=== PATIENT | male | born 1950 | race African-American/Black ===

== ENCOUNTER 2021-12-04 11:48 | Outpatient (REF) | payer MEDICARE, OTHER, SELFPAY ==
--- NOTE | ~2021-12-04 | XR_ITS ---
EXAMINATION: XR HIP, LEFT CLINICAL INFORMATION: Pain. Fall. COMPARISON: None TECHNIQUE: Two views of the left hip. FINDINGS: Bone alignment is normal. No fracture or dislocation is seen. There is mild arthritis of the left hip joint with joint space narrowing and osteophyte formation. Soft tissues are unremarkable. XR/XR hip LT min 2V IMPRESSION: No fracture or dislocation. Mild left hip arthritis.
== END 2021-12-04 11:49 | disposition home or self-care (01) ==
LOC: HO.LAB 11:48
PROVIDERS: PCP Internal Medicine; Visit Provider Family Medicine
DX: M25.552 Pain in left hip (principal)
CPT/HCPCS: 73502

== ENCOUNTER → 2022-01-17 12:38 | Outpatient (BNVA) | payer OTHER, SELFPAY | PROVIDERS: PCP Internal Medicine; Visit Provider Physician Assistant | DX: S70.02XA Contusion of left hip, initial encounter (principal) | CPT/HCPCS: 99202 ==

== ENCOUNTER 2022-07-11 12:00 | Outpatient (RCR) | payer OTHER, SELFPAY ==
--- NOTE | 2022-05-15 16:13 | MHC.PT.EP ---
[facility] [place] [facility] [place] [facility] [place] [facility] [address] Sylvie Eli [address] [phone] F: [phone] F: [phone] F: [phone] F: [phone] Physical Therapy Plan of Care Date of Evaluation: Date of Surgery: N/A Diagnosis: Contusion of left hip Assessment: Pt is a pleasant and motivated 71yo M who presents to PT with L hip pain. Pt reports onset of pain ~3-4 months ago s/p fall up the stairs, xrays negative for fracture. He presents to PT with current impairments in pain, decreased hip/glute strength, decreased quad strength, decreased balance/proprioception, and impaired gait. He is TTP throughout L greater trochanter region. He is limited functionally by prolonged standing, walking, and stair navigation. He is a good candidate for skilled PT in order to address current impairments to facilitate return to PLOF. He is recommended to be seen 2x/week for 4 weeks and will be reassessed at that time. Frequency and Duration: The patient will be seen 2x/week for 4 weeks Short Term Goals: Pt will be I with HEP to promote self management of symptoms Pt will improve L glute med strength by 1/2 grade Senior Living Goals: Pt will improve L glute med strength to at least 4+/5 to assist with standing and walking Pt will tolerate standing and walking > 30 min with pain < 4/10 Pt will demonstrate improvements in function as evidenced by statistically significant improvement in LEFI outcome measure Treatment Plan: Modalities to reduce pain, spasms and effusion. Manual therapy to restore motion and function. Therapeutic exercise to improve strength and flexibility. Neuromuscular re-education for posture and balance. Therapeutic activities to return to functional activities of daily living. Electronically signed by: Carlene Cooper, PT, DPT Please sign and return to therapist. Thank you for your referral.
--- NOTE | 2022-07-11 14:42 | MHC.PT.DC ---
[facility] [place] [facility] [place] [facility] [place] [facility] [address] Sylvie Eli [address] [phone] F: [phone] F: [phone] F: [phone] F: [phone] Physical Therapy Discharge Report Diagnosis: Contusion of left hip Date of Surgery: N/A Date of Evaluation: 05/15/22 Date of Discharge: 07/11/22 Treatments to Date: 8 Cancellations to Date: 6 No Shows to Date: Discharge Status: Achieved Goals Improved Function Independent with HEP Discharge Summary: Pt was seen for PT from 05/15/22-07/11/22. He has made excellent progress since SOC. He has consistently had minimal to no pain. He improved his score on LEFI outcome measure from 12/80 on initial PT evaluation to 54/80. He is able to ambulate extended distances without AD and ride his bike without pain. He has met his STGs and LTGs. He is I with HEP. He is being D/C from skilled PT at this time. He reports no questions or concerns at time of D/C. Electronically signed by: Carlene Cooper, PT, DPT Please sign and return to therapist. Thank you for your referral.
== END 2022-07-11 14:41 | disposition home or self-care (01) ==
LOC: HO.PT 12:00
PROVIDERS: PCP Internal Medicine; Visit Provider Physician Assistant
DX: S70.02XD Contusion of left hip, subsequent encounter (principal)
CPT/HCPCS: 97110; 97140; 97161; 97530

== ENCOUNTER 2023-05-13 14:05 | Outpatient (REF) | payer MEDICARE, SELFPAY ==
[2023-05-13 16:23] LABS: MANUAL DIFF FLAG NO
[2023-05-13 16:31] LABS: Basophils Absolute Auto 0.1 X10*3/uL (0.0-0.2); Basophils Percent Auto 1.9 % (0-2); Eosinophils Percent Auto 0.6 % (0-4); Hemoglobin 15.3 g/dl (14.0-18.0); Imm Gran Abs Auto 0.01 X10*3/uL (0.00-0.03); Imm Gran Pct Auto 0.2 % (0.0-0.4); Lymphocytes Percent Auto 41.4 % (20-40); Mean Corpuscular HGB Conc 33.3 g/dl (31.0-36.0); Mean Corpuscular Hemoglobin 29.8 pg (27.0-33.0); Mean Corpuscular Volume 89.7 fL (80.0-98.0); Mean Platelet Volume 10.1 fL (9.4-12.4); Monocytes Absolute Auto 0.5 X10*3/uL (0.1-1.2); Monocytes Percent Auto 10.7 % (2-11); Neutrophils Absolute Auto 2.2 x10*3/uL (2.0-8.3); Neutrophils Percent Auto 45.2 % (45-73); Platelet Count 217 X10*3/uL (160-400); Red Blood Count 5.13 X10*6/uL (4.60-5.80); Red Cell Distribution Width 14.8 % (11.0-16.0); White Blood Count 4.9 X10*3/uL (4.8-10.8)
[2023-05-13 16:56] LABS: Alanine Aminotransferase 13 U/L (0-40); Albumin Level 4.2 g/dL (3.5-5.0); Alkaline Phosphatase 91 U/L (39-117); Anion Gap 16 (12-20); Aspartate Amino Transferase 24 U/L (5-37); Bilirubin Direct 0.2 mg/dL (0.0-0.5); Bilirubin Total 0.5 mg/dL (0.0-1.0); Blood Urea Nitrogen 7 mg/dL (9-16); Calcium 9.4 mg/dL (8.4-10.2); Carbon Dioxide 28 mmol/L (22-29); Chloride 101 mmol/L (96-108); Cholesterol 200 mg/dL (<200); Estimated Glomerular Filt Rate > 60; Glucose Random 93 mg/dL (60-115); HDL Cholesterol 58 mg/dL (>40); LDL Cholesterol Calculated 129 mg/dL (<100); Potassium 4.2 mmol/L (3.3-5.1); Sodium 141 mmol/L (135-145); Total Protein 8.3 g/dL (6.5-8.0); Triglycerides 66 mg/dL (<150)
[2023-05-13 16:57] LABS: Estimated Average Glucose 111 mg/dL; Hemoglobin A1c % 5.5 % (<6.0)
[2023-05-14 07:50] LABS: HIV AB/AG Nonreactive (Nonreactive); HIV Num 1 0.06 S/CO (0.00-0.99); ~HepC Num1 12.54 S/CO (0.00-0.79); ~Hepatitis C Antibody Reactive (Nonreactive)
[2023-05-16 10:59] LABS: HCV Log PCR <1.18 NOT DETECTED Log IU/mL (NOT DETECTED); HepC Viral Load <15 NOT DETECTED IU/mL (NOT DETECTED)
== END 2023-05-13 14:06 | disposition home or self-care (01) ==
LOC: HO.HHCL 14:05
PROVIDERS: Visit Provider Internal Medicine
DX: Z11.4 Encounter for screening for human immunodeficiency virus [HIV] (principal); I10 Essential (primary) hypertension
CPT/HCPCS: 36415; 80048; 80061; 80076; 83036; 85025; 86803; 87389; 87522

== ENCOUNTER 2024-05-06 11:30 | Outpatient (REF) | payer MEDICARE, SELFPAY ==
--- NOTE | ~2024-05-06 | XR_ITS ---
EXAMINATION: XR HIP 2 OR MORE VIEWS LEFT HISTORY: Chronic left-sided hip pain. History of hip OA. COMPARISON: Comparison is made with the prior examination dated 12/04/2021. FINDINGS: Three views of the left hip are submitted. Osseous mineralization is normal. There is no fracture or dislocation. There is mild joint space narrowing. The soft tissues are unremarkable. XR/XR hip LT min 2V IMPRESSION: Mild joint space narrowing. Electronically signed by: Glenn Euceda MD 05/06/2024 12:29 PM JERMAINE GUZMAN
--- OUTSIDE RECORDS SUMMARY | 2024-05-06 15:32 | XMS_ITS | Data Portability ---
Author Organization [place] - [facility], Allergy Address [address] [address] Care Team Providers Care Marketing Assistant Retail Division Name Role Phone ELISA LU Primary Care Provider [phone] Assessment No assessment recorded. Plan of Treatment Reminders Order Date Submit Date Provider Last Modified By Organization Details Last Modified Time Details Appointments None recorded. Lab None recorded. Referral None recorded. Procedures None recorded. Surgeries None recorded. Imaging MRI, brain + internal auditory canal, w/wo contrast - MRI, BRAIN + INTERNAL AUDITORY CANAL, W/WO CONTRAST [facility] [address] [place], [address], 16:35:27 Medication Orders None recorded. Patient TargetsNo targets recorded. Patient InstructionsNo instructions recorded. Reason for Referral None Reported. Results Created Date Observation Date Name Description Value Unit Range Abnormal Flag Note LastModifiedBy Organization Detail LastModifiedTime 10/30/19 24 audio gram No observ ation record ed. BARCODE Not Available 2023 14:16:12 11/20/19 24 11/20/2023 MRI, brain + brain stem, w/wo contr ast [facility] Access ion Number : [id number] Charley payne Name: Jeyson Jaya l Record Number : [id number] Date of : 1950 Date of Exam: 2023 Referr ravi Physic maribell: Aparna Rogers [facility] [place] [address] [facility] [address] [place] [address] Exam: MR Brain (C-/C+ ) CPT 86173 Room Descri ption: [place] Siem Espr 1.5 MR Brain (C-/C+ ) CPT 63983 INDICA TION / CLINIC AL QUESTI ON: H90.5 - Unspec ified sensor ineura l hearin g loss, , MRI, BRAIN + SENIOR IT PROJECT MANAGER AL AUDITO RY CANAL, W/WO CONTRA ST\E E\[facility] (MRI, BRAIN + SENIOR IT PROJECT MANAGER AL AUDITO RY CANAL, W/WO CONTRA ST)Cli nical Indica tion: Asymme tric sensor ineura l hearin g loss H90.5 - Unspec ified sensor ineura l hearin g loss, , MRI, BRAIN + SENIOR IT PROJECT MANAGER AL AUDITO RY CANAL, W/WO CONTRA ST\E E\[facility] (MRI, BRAIN + SENIOR IT PROJECT MANAGER AL AUDITO RY CANAL, W/WO CONTRA ST)Cli nical Indica tion: Asymme tric sensor ineura l hearin g loss TECHNI QUE: MRI of the brain with attent ion to the employee communications intern al audito ry canals was perfor med with and withou t contra st utiliz ing sagitt al T1, axial T2, axial CISS, axial and william l T1, and post-c ontras t axial and william l T1-isaiah ghted sequen rhoda. 15 mL Dotare m intrav enous contra st was admini stered . COMPAR VANITA: None. FINDIN GS: IAC: There is no mass or abnorm al enhanc ement in the employee communications intern al audito ry canals or cerebe llopon oscar angles . Course and calibe r of the 7th and 8th crania l nerves is normal bilate rally. Fluid signal is preser giulia in the inner ear struct ures bilate rally. Brains tem demons trates normal signal . BRAIN and EXTRA- AXIAL SPACES : The ventri cles and sulci are promin ent reflec ting volume loss. There is a promin ent periva scular space versus chroni c lacuna r infarc t in the left thalam us. EXTRAC RANIAL SOFT TISSUE S: Visual ized portio ns of the extrac ranial soft tissue s are unrema rkable . Mild scatte red parana wally sinus mucosa l thicke tip and trace nonspe cific patchy fluid signal in the bilate ral mastoi d air cells. BONES: Visual ized marrow signal is preser giulia. IMPRES LISA: No retroc ochlea r abnorm ality to explai n the patien t?s sympto ms. Electr onical ly Signed By: Yamileth siegel MD [facility] ([facility]) [address], [place], [address], 11/21/2023 12:27:09 Result Notes None recorded. Problems Name Problem SNOMED Code Status Onset Date Resolution Date Notes Provider Name and Address Organization Details Recorded Time Sensorineural hearing loss of bilateral ears 864404663 Active 2023 EDMUND PADILLA, [place] [address], [place], [phone], [facility] 4 09:40:16 Asymmetrical sensorineural hearing loss 827045717 Active 2023 APARNA Grijalva MD [address] [place] [address], [place], [phone], [facility] 4 10:42:49 Problem Notes None recorded. Procedures Surgical History Date Name Laterality Status Provider Name and Address Organization Details Recorded Time 10/30/2023 Comp Audio with Tymps (12200 & 70145) completed EDMUND PADILLA [address], [address], [facility] 10/30/2023 09:40:00 Imaging Results Imaging Date Name Status LastModified by Organiz ation Details LastModified Time 10/30/2023 audiogram completed BARCODE Information no t available 10/30/2023 14:16:12 11/20/2023 MRI, brain + brain stem, w/wo contrast completed [facility] ([facility]) [address], [place], [address], 11/21/2023 12:27:09 Procedure Notes None recorded. Medical Equipment None Reported. Medications Name Sig Start Date Stop Date Status Note LastModified by Organization Details LastModified Time nicotine (polacrilex) 4 mg gum CHEW 1 PIECE IN MOUTH EVERY 2 HOURS NEEDED FOR SMOKING CESSATION active Not Available Not Available No t Available amlodipine 10 mg tablet TAKE 1 TABLET BY MOUTH EVERY MORNING active Not Available Not Available No t Available lisinopril 10 mg tablet TAKE 1 TABLET BY MOUTH EVERY MORNING active Not Available Not Available No t Available lisinopril 30 mg tablet TAKE 1 TABLET BY MOUTH EVERY DAY IN THE MORNING active Not Available Not Available No t Available Vitals Date Recorded Body height Body mass index (BMI) Body weight Provider Name and Address Organization Details Last Updated DateTime 10/30/2023 177.8 cm 23 kg/m2 86980.78 g Meenakshi Neely [place] - [facility] 10/30/2023 10:31:12 Social History None recorded. Functional Status None recorded. Mental Status None recorded. Family History Nothing Reported. Medical History No medical history recorded. Past Encounters Encounter ID Performer Location Encounter Start Date Encounter Closed Date Diagnosis/Indication Diagnosis SNOMED-CT Code Diagnosis ICD10 Code Diagnosis Note [id number] APARNA ROBISON MD [facility] [address] [address] 10/30/2023 09:08:48 10/30/2023 10:51:41 Sensorineural hearing loss of bilateral ears 249036455 H90.3 Right Ear:Normal hearing through 500 Hz sloping to a profound SNHL with excellent speech discrimina tion.Type A tympanogra m.Left Ear:Normal hearing through 1K Hz sloping to a severe SNHL with excellent speech discrimina tion.Type A tympanogra m. Asymmetric al sensorineural hearing loss 985923629 H90.5 Given the asymmetric hearing loss I recommend an MRI IAC with contrast to evaluate for retrocochl ear pathology. We will review results when complete. I gave medical clearance for hearing aids. Health Concerns Section Related Observation LastModified by Organization Detai ls LastModified Time None Recorded Concern Status LastModified by Organization Details LastModified Time None Recorded Advance Directives Directive None Recorded Payers Encounter Date Sequence Insurance Name Policy Number Policy Altamirano Covered Member ID Altamirano Member ID Guarantor Name 10/30/2023 1 [employer] (MEDICARE REPLACEMENT PPO) [id number] Jeyson Jay [id number] Jeyson Jay Notes Date Note Type Note Provider Name and Address Organization Details Recorded Time 10/30/2023 text/html In March or April he noted decreased hearing AD. Denies tinnitus. he did not see a doctor when he noted the hearing change. Audio today shows normal sloping to profound SNHL AD and normal sloping to severe . APARNA ROBISON MD [address] [place] [address], [phone], [facility] - [facility] 10/30/2023 10:48:14
== END 2024-05-06 11:31 | disposition home or self-care (01) ==
LOC: HO.HHCX 11:30
PROVIDERS: Visit Provider Family Medicine
DX: M25.552 Pain in left hip (principal)
CPT/HCPCS: 73502

== ENCOUNTER → 2024-05-06 11:31 | Outpatient (BNV) | payer MEDICARE, SELFPAY | PROVIDERS: Visit Provider Radiology Diagnostic Radiology | DX: M25.552 Pain in left hip (principal) | CPT/HCPCS: 73502 ==

== ENCOUNTER 2024-06-18 11:38 | Outpatient (REF) | payer MEDICARE, SELFPAY ==
--- NOTE | ~2024-06-18 | XR_ITS ---
EXAMINATION: XR KNEE 4 OR MORE VIEWS LEFT HISTORY: pain COMPARISON: There are no prior studies available for comparison. FINDINGS: Four views of the left knee are submitted. Osseous mineralization is normal. There is no fracture or dislocation. The joint spaces are preserved. There are vascular calcifications. XR/XR knee LT 4V IMPRESSION: Unremarkable examination of the left knee. Electronically signed by: Glenn Euceda MD 06/18/2024 12:16 PM EDT
--- OUTSIDE RECORDS SUMMARY | 2024-06-18 13:28 | XMS_ITS | Encounter Summary ---
Author Organization [employer] Address [address] [facility] [address] [place] [address] Care Team Providers Care Immunohematologist Name Role Phone Ashley Medeiros MD Primary Care Provide r Encounter Details Date Type Department Care Team (Latest Contact Info) Description 06/18/2024 Travel Social History Tobacco Use Types Packs/Day Years Used Date Smoking Tobacco: Every Day Cigarettes Passive Smoke Exposure: Current Smokeless Tobacco: Never Alcohol Use Standard Drinks/Week Comments Never 0 (1 standard drink = 0.6 oz pur e alcohol) Depression Answer Date Recorded Patient Health Questionnaire-9 Score 0 06/18/2024 Patient Health Questionnaire-9 Score 0 06/18/2024 Last PHQ-9: Questionnaire Data Not on file 0 06/18/2024 Housing Stability Answer Date Recorded What is your housing situation today? I have alejandrina morse 08/05/[address] you li ve. Do you have problems with any of the following? None of the above 08/05/2023 Food Insecurity Answer Date Recorded Within the past 12 months, y ou worried that your food would run out before you got money to buy more: Never True 08/05/2023 Within the past 12 months,th e food you bought just didn't last and you didn't have enough money to get more: Never True Transportation Answer Date Recorded In the past 12 months, has l ack of transportation kept you from medical appts, meetings, work or from getting things needed for daily living? No 06/18/2024 Utilities Answer Date Recorded In the past 12 months, has t he electric, gas, oil or water company threatened to shut off services in your home? No 08/05/2023 Depression Answer Date Recorded Patient Health Questionnaire-2 Score 0 06/18/2024 Internet Access Answer Date Recorded Internet Access Q1 No 06/18/2024 Internet Access Q2 I do not want or need it 06/05 Sex and Gender Information Value Date Recorded Sex Assigned at Male 02/04/2022 10:31 AM EDT Legal Sex Male 10:31 AM EDT Gender Identity Male 05/21/2024 1:46 PM EST Sexual Orientation Straight 05/21/2024 1: 46 PM EST documented as of this encounter Plan of Treatment Not on file documented as of this encounter Visit Diagnoses Not on filedocumented in this encounter Additional Health Concerns Assessment Noted Time PHQ-9 Depression Total Score: 0 06/19/19 25 9:50 AM EDT documented as of this encounter Care Teams Immunohematologist Relationship Specialty Start Date End Date Ashley Medeiros MD [address] [place] [address] PCP - General Family Medicine 11/02/18 documented as of this encounter
--- OUTSIDE RECORDS SUMMARY | 2024-06-18 13:28 | XMS_ITS | Clinical Summary ---
Author Organization [employer] Address [address] [facility] 7t [place] [address] Care Team Providers Care Product Tester Name Role Phone Ashley Medeiros MD Primary Care Provide r Allergies Active Allergy Reactions Criticality Noted Date Comments Penicillins 10/09/2016 Other reaction(s): Rash Medications nicotine polacrilex (Nicorette) 4 MG gumIndications: Smoker Chew 1 each (4 mg) if needed for smoking cessation. 100 each 05/13/19 24 Active lisinopril 30 MG tabletIndicatio ns:Essential hypertension Take 1 tablet (30 mg) by mouth in the morning. 90 tablet 1 05/21/19 25 Active amLODIPine (Norvasc) 10 MG tabletIndicatio ns:Essential hypertension Take 1 tablet (10 mg) by mouth Once per day. 90 tablet 1 05/21/19 25 026 Active Diclofenac Sodium 1 % gelIndications: Acute pain of left knee Apply as needed up to 2g 4x/d to knee 100 g 1 05/21/19 25 Active atorvastatin (Lipitor) 40 MG tabletIndicatio ns:Essential hypertension Take 1 tablet (40 mg) by mouth Once per day. 90 tablet 1 06/19/19 25 026 Active amLODIPine (Norvasc) 10 MG tabletIndicatio ns:Essential hypertension Take 1 tablet (10 mg) by mouth in the morning. 90 tablet 1 05/13/19 24 025 Discontinued(R eorder (will not trigger notification to Pharmacy)) lisinopril 30 MG tabletIndicatio ns:Essential hypertension TAKE 1 TABLET BY MOUTH EVERY DAY IN THE MORNING 90 tablet 1 11/13/19 24 025 Discontinued(R eorder (will not trigger notification to Pharmacy)) Diclofenac Sodium 1 % gel PLEASE SEE ATTACHED FOR DETAILED DIRECTIONS 025 Discontinued(R eorder (will not trigger notification to Pharmacy)) acetaminophen (Tylenol Extra Strength) 500 MG tabletIndicatio ns:Acute pain of left knee Take 2 tablets (1,000 mg) by mouth every 8 (eight) hours if needed for mild pain or moderate pain for up to 10 days. 60 tablet 05/21/19 25 025 Active Problems Problem Noted Date Diagnosed Date Acute pain of left knee 06/18/2024 Assessment & Plan (06/18/2024 10:55 AM EDT): I will order an x-ray of his knee patient will be contacted with results I will refer patient to orthopedics in light of persistent pain Left hip pain 06/18/2024 Assessment & Plan (06/18/2024 10:55 AM EDT): I will refer patient to orthopedics He will start PT next week Smoker 05/13/2023 Assessment & Plan (06/18/2024 10:55 AM EDT): Extensive counseling about smoking cessation on today Patient reports he has nicotine gum at home and he will try to quit smoking on his own Assessment & Plan (05/13/2023 1:44 PM EST): Smoking cessation counseling Diminished hearing, right 05/13/2023 Assessment & Plan (05/13/2023 1:44 PM EST): ENT referral Impacted cerumen 04/11/2023 04/11/2023 Benign prostatic hyperplasia (BPH) with straining on urination 07/09/2018 04/11/2023 Hyperlipidemia 07/09/2018 04/11/2023 Tubular adenoma of colon 07/09/2018 024 Abdominal aortic ectasia 01/07/2017 024 Common iliac aneurysm 01/07/2017 04/11/2023 Chronic hepatitis C 10/14/2016 04/11/2023 Essential hypertension 10/09/2016 4 Assessment & Plan (06/18/2024 10:54 AM EDT): Today patient forgot to take his medication, blood pressure was borderline high I advised low-sodium diet I advised to take his medications every day without missing any dose I advised to monitor blood pressure at home and report back to me if blood pressure is persistently higher than 140/90 Assessment & Plan (05/13/2023 1:43 PM EST): Maintenance: BMP: ordered today Lipid Panel: ordered today ASCVD Risk: Calculate pending updated labs -Patient is clinically asymptomatic he denies chest pain, SOB, dizziness, palpitations, headache, weakness or numbness -I will start amlodipine 10mg daily + lisinopril 10mg daily RTC 1 week with nurse for BP check if is not at goal plan is increase lisinopril to 30mg It was advise: - Aerobic exercise to reduce BP. Initial goal of 30 min walk 3-5x/week. Increase as tolerated. - low-sodium diet (goal: <2g/day) and heart healthy diet such as DASH to reduce BP and prevent ASCVD. - Home BP monitoring 1-2 x day with goal of <140/90. - Seek immediate medical attention for chest pain, palpitations, SOB, syncope, or sudden changes in mental status. - Do not change or discontinue current prescriptions without first consulting health care provider Encounters Date Type Department Care Team Description 06/18/2024 10:00 AM EDT Office Visit [facility] [address] [place] [phone] Ashley Medeiros MD Essential hypertension (Primary Dx); Acute pain of left knee; Left hip pain; Smoker 06/18/2024 Travel 05/21/2024 1:45 PM EST Office Visit [facility] [address] [place] [address] Madai Raed ANP Acute pain of left knee (Primary Dx); Essential hypertension; Smoker 05/21/2024 Travel 05/20/2024 Telephone [facility] [address] [place] [address] Ashley Medeiros MD Nurse Triage 05/07/2024 Telephone [facility] [address] [place] [phone] Robert Parker MD 05/03/2024 Telephone [facility] [address] [place] [phone] Maine Shipley, RN NTTS 05/01/2024 11:20 AM EST Office Visit [facility] [address] [place] [address] Robert Parker MD Left hip pain (Primary Dx); Essential hypertension 04/30/2024 Telephone [facility] [address] [place] [address] Ashley Medeiros MD Nurse Triage from Last 3 Months Immunizations Name Administration Dates Next Due Hep B, adult 12/19/2017,08/04/2017 Influenza High-dose Quadrivalent Preservative Fr ee 01/04/2022 Influenza Quadrivalent Adjuvanted 01/25/2021 Influenza injectable quadriv alent IIV4 with preservative 02/13/2017 Influenza injectable quadrivalent preservative f ree 05/13/2023 Influenza, High Dose Seasonal, Preservative Free 02/05/2019,12/19/2017 Pneumococcal Conjugate PCV 13 02/13/2017 Pneumococcal Conjugate PCV 20 05/13/2023 Tdap 05/21/2024 Zoster, live 12/10/2017 Social History Tobacco Use Types Packs/Day Years Used Date Smoking Tobacco: Every Day Cigarettes Passive Smoke Exposure: Current Smokeless Tobacco: Never Tobacco Cessation:Ready to Q uit: Not Asked; Counseling Given: Not Answered Alcohol Use Standard Drinks/Week Comments Never 0 [...] Orientation Straight 05/21/2024 1: 46 PM EST Last Filed Vital Signs Vital Sign Reading Time Taken Comments Blood Pressure 140/82 06/18/2024 9:49 AM EDT w out meds Pulse 110 06/18/2024 9:49 AM EDT Temperature 36.3 ??C (97.4 ??F) 06/18/2024 9 :49 AM EDT Respiratory Rate 20 06/18/2024 9:49 AM EDT Oxygen Saturation 97% 05/21/2024 2:0 5 PM EST Inhaled Oxygen Concentration - - Weight 60.7 kg (133 lb 12.8 oz) 025 9:49 AM EDT Height 177.8 cm (5' 10 ) 06/18/2024 9:4 9 AM EDT Body Mass Index 19.2 06/18/2024 9:49 AM EDT Plan of Treatment Health Maintenance Due Date Last Done Comments CT Colonography 1950 FIT DNA/Cologuard 1950 FIT 1950 FOBT 1950 Sigmoidoscopy 1950 Hepatitis A Vaccines (1 of 2 - Risk 2-dose series) 08/10/1970 RSV Patients and Patients Aged 60 years or older (1 - Risk 60-74 years 1-dose series) 2011 Zoster Vaccines (2 of 3) 02/04/2018 12/10/2017 Hepatitis B Vaccines (3 of 3 - Risk 3-dose series) 02/13/2018 12/19/2017, 08/04/2017 Colonoscopy 12/09/2021 12/09/2016 Colorectal Cancer Screening 12/09/2021 COVID-19 Vaccine (3 - season) 2023 07/29/2020, 07/01/2020 Influenza Vaccine (#1) 2023 , 01/04/2022, 01/25/2021, Additional history exists Alcohol/Substance Use Screening 05/21/2025 05/21/2024 Depression Screening 06/18/2025 06/18/2024, 06/19/19 SDOH Screening 06/18/2025 06/18/2024 Tobacco Screening 06/18/2025 06/18/2024 Lipid Panel 05/13/2028 05/13/2023, 01/04/2022 DTaP/Tdap/Td Vaccines (2 - Td or Tdap) 05/21/2034 05/21/2024 Pneumococcal Vaccine: 50+ Years Completed 05/13/2023, 02/13/2017 HIB Vaccines Aged Out No longer eligi ble based on patient's age to complete this topic HPV Vaccines Aged Out No longer eligi ble based on patient's age to complete this topic IPV Vaccines Aged Out No longer eligi ble based on patient's age to complete this topic Meningococcal Vaccine Aged Out No miguel a allyssa eligible based on patient's age to complete this topic RSV under 20 months Aged Out No longe r eligible based on patient's age to complete this topic Rotavirus Vaccines Aged Out No longer eligible based on patient's age to complete this topic Procedures Procedure Name Priority Date/Time Associated Diagnosis Comments XR KNEE 4+ VIEWS LEFT Routine 06/18/2024 11:38 AM EDT Acute pain of left knee XR HIP 2 OR 3 VIEWS LEFT Routine 05/06/2024 11:31 AM EST Left hip pain LIPID PANEL, STANDARD Routine 05/13/2023 2:09 PM EST Essential hypertension HM COLONOSCOPY Routine 12/09/2016 from Last 3 Months or Most Recently Relevant to Health Maintenance Results * XR Knee 4+ Views Left (06/18/2024 11:38 AM EDT) Anatomical Region Laterality Modality Lower Extremities, Knee Left Radiogra phic Imaging 06/18/2024 11:3 8 AM EDT Narrative 06/18/2024 12:19 PM EDT ?[facility] ?[address] ?[place] [address] ?XRay Report ? Signed ? Patient: Jeyson Jay ?MR#: [id number] ? : 1950 ?Acct:[id number] ? Age/Sex: 73 / M ?ADM Date: 06/18/24 ? Loc: HO.HHCX ? Attending Dr: Ashley Mejias MD ? Ordering Physician: Ashley Medeiros MD ?? Date of Service: 06/18/24 ?? Procedure(s): XR knee LT 4V ?? Accession Number(s): [id number] ? cc: Ashley Medeiros MD ? EXAMINATION: ??XR KNEE 4 OR MORE VIEWS LEFT ? HISTORY: pain ? COMPARISON: There are no prior studies available for comparison. ? FINDINGS: ? Four views of the left knee are submitted. ??Osseous mineralization is ?? normal. ??There is no fracture or dislocation. ??The joint spaces are ?? preserved. ??There are vascular calcifications. ? XR/XR knee LT 4V ?? IMPRESSION: ? Unremarkable examination of the left knee. ? Electronically signed by: ??Glenn Euceda MD ??06/18/2024 12:16 PM EDT ?? RP ? Dictated By: ?Glenn Euceda MD ? Signed By: ?<Electronically signed by Glenn Euceda MD in OV> ?06/18/24 1216 ? DD/ 1138 ? TD/TT: 06/18/24 1200 ? Arc Trimmer: ? Procedure Note Nic, Image - 06/18/[address] [address] XRay Report Signed Patient: Marlene Jay#: [id number] : 2Acct:[id number] Age/Sex: 73 / MADM Date: 06/18/24 Loc: HO.HHCX Attending Dr: Ashley Mejias MD Ordering Physician: Ashley Medeiros MD Date of Service: 06/18/24 Procedure(s): XR knee LT 4V Accession Number(s): [id number] cc: Ashley Medeiros MD EXAMINATION: XR KNEE 4 OR MORE VIEWS LEFT HISTORY: pain COMPARISON: There are no prior studies available for comparison. FINDINGS: Four views of the left knee are submitted. Osseous mineralization is normal. There is no fracture or dislocation. The joint spaces are preserved. There are vascular calcifications. XR/XR knee LT 4V IMPRESSION: Unremarkable examination of the left knee. Electronically signed by: Glenn Euceda MD 06/18/2024 12:16 PM EDT Dictated By: Glenn Euceda MD Signed By: <Electronically signed by Glenn Euceda MD in OV> 06/18/24 1216 DD/ 1138 TD/TT: 06/18/24 1200 Arc Trimmer: us Ashley Mejias MD IMG XR PROCEDURES Fin al Result * XR Hip 2 or 3 Views Left (05/06/2024 11:31 AM EST) Anatomical Region Laterality Modality Lower Extremities, Hip Left Radiograp hic Imaging 05/06/2024 11:3 1 AM EST Narrative 05/06/2024 12:32 PM EST ?[facility] ?[address] ?[place] [address] ?XRay Report ? Signed ? Patient: Pierre,Jeyson ?MR#: [id number] ? : 1950 ?Acct:[id number] ? Age/Sex: 73 / M ?ADM Date: 01/30/25 ? Loc: HO.HHCX ? Attending Dr: Robert Parker MD ? Ordering Physician: Robert Parker MD ?? Date of Service: 05/06/24 ?? Procedure(s): XR hip LT min 2V ?? Accession Number(s): [id number] ? cc: Robert Parker MD ? EXAMINATION: ??XR HIP 2 OR MORE VIEWS LEFT ? HISTORY: Chronic left-sided hip pain. History of hip OA. ? COMPARISON: Comparison is made with the prior examination dated ?? 12/04/2021. ? FINDINGS: ?? Three views of the left hip are submitted. ??Osseous ?? mineralization is normal. ??There is no fracture or dislocation. ??There ?? is mild joint space narrowing. ??The soft tissues are unremarkable. ? XR/XR hip LT min 2V ?? IMPRESSION: ?? Mild joint space narrowing. ? Electronically signed by: ??Glenn Euceda MD ??05/06/2024 12:29 PM EST ?? RP ? Dictated By: ?Glenn Euceda MD ? Signed By: ?<Electronically signed by Glenn Euceda MD in OV> ?05/06/24 1229 ? DD/ 1131 ? TD/TT: 05/06/24 1156 ? Arc Trimmer: ? Procedure Note Nic, Image - 05/06/[address] [address] XRay Report Signed Patient: Marlene Jay#: [id number] : 2Acct:[id number] Age/Sex: 73 / MADM Date: 05/06/24 Loc: HO.HHCX Attending Dr: Robert Parker MD Ordering Physician: Robert Parker MD Date of Service: 05/06/24 Procedure(s): XR hip LT min 2V Accession Number(s): [id number] cc: Robert Parker MD EXAMINATION: XR HIP 2 OR MORE VIEWS LEFT HISTORY: Chronic left-sided hip pain. History of hip OA. COMPARISON: Comparison is made with the prior examination dated 12/04/2021. FINDINGS: Three views of the left hip are submitted. Osseous mineralization is normal. There is no fracture or dislocation. There is mild joint space narrowing. The soft tissues are unremarkable. XR/XR hip LT min 2V IMPRESSION: Mild joint space narrowing. Electronically signed by: Glenn Euceda MD 05/06/2024 12:29 PM EST RP Dictated By: Glenn Euceda MD Signed By: <Electronically signed by Glenn Euceda MD in OV> 05/06/24 1229 DD/ 1131 TD/TT: 05/06/24 1156 Arc Trimmer: us Robert Parker MD IMG XR PROCEDURES Final Result * (ABNORMAL) Lipid Panel, Standard (05/13/2023 2:09 PM EST) Triglycerides 66 <150 mg/dL [facility] Comment:Desirable Triglyceri de: less than 150 mg/dLBorderline High Triglyceride 150-199 mg/dLHigh Triglyceride: 200-499 mg/dLVery High Triglyceride: greater than or equal to 5OO mg/dL Cholesterol 200(H) <200 mg/dL [facility] Comment:Desirable Cholestero l: less than 200 mg/dLBorderline High Cholesterol: 200-239 mg/dLHigh Cholesterol: greater than 239 mg/dL LDL Cholesterol Calculated 129(H) <100 mg/dL [facility] Comment:Desirable LDL: less than 100 mg/dLNear Optimal/Above Optimal LDL: 110- 129 mg/dLBorderline High LDL: 130-159 mg/dLHigh LDL: 160-189 mg/dLVery High LDL: greater than or equal to 190 mg/dL HDL Cholesterol 58 >40 mg/dL [facility] Comment:Desirable HDL: great er than 40 mg/dL Note: This HDL assay may give artificially low results in patients with liver disease. Blood Venous blood specimen / Unknown 05/13/2023 2:09 PM EST 05/13/2023 4:09 PM EST us Ashley Mejias MD LAB BLOOD ORDERABLES Final Result [facility] [address] [place] [phone] * Hm Colonoscopy (12/09/2016) us Historical Provider HEALTH MAINTENANCE Final Result from Last 3 Months or Most Recently Relevant to Health Maintenance Insurance MEDICARE ADVANTAGE HMO Care Teams Product Tester Relationship Specialty Start Date End Date Ashley Medeiros MD [address] [place] [phone] PCP - General Family Medicine 11/02/18
--- OUTSIDE RECORDS SUMMARY | 2024-06-18 13:28 | XMS_ITS | Encounter Summary ---
Author Organization [employer] Address [address] [facility] 7t [place] [address] Care Team Providers Care Control Clerk Head Name Role Phone Ashley Medeiros MD Primary Care Provide r Reason for Referral * Consultation (Routine) - Pending Review Specialty Diagnoses / Procedures Referred By Bruce payne Referred To Contact Orthopaedic Surgery Diagnoses Acute pain of left knee Left hip pain Ashley Medeiros MD [address] [place] [phone] Phone: tel: fax: Referral ID Status Reason Start Date Expiration Date Visits Requested Visits Authorized [id number] Pending Review Specialty Services Required 06/18/2024 06/18/2025 1 1 Encounter Details Date Type Department Care Team (Late st Contact Info) Description 06/18/2024 10:00 AM EDT Office Visit [facility] [address] [place] [address] [phone] Ashley Medeiros MD [address] [place], [place] [phone] Essential hypertension (Primary Dx); Acute pain of left knee; Left hip pain; Smoker Social History Tobacco Use Types Packs/Day Years [...] PM EST documented as of this encounter Last Filed Vital Signs Vital Sign Reading Time Taken Comments Blood Pressure 140/82 06/18/2024 9:49 AM EDT w out meds Pulse 110 06/18/2024 9:49 AM EDT Temperature 36.3 ??C (97.4 ??F) 06/18/2024 9 :49 AM EDT Respiratory Rate 20 06/18/2024 9:49 AM EDT Oxygen Saturation - - Inhaled Oxygen Concentration - - Weight 60.7 kg (133 lb 12.8 oz) 025 9:49 AM EDT Height 177.8 cm (5' 10 ) 06/18/2024 9:4 9 AM EDT Body Mass Index 19.2 06/18/2024 9:49 AM EDT documented in this encounter Progress Notes * Ashley Mejias MD - 06/18/2024 10:00 AM EDT SUBJECTIVE: Jeyson Jay is a 73 y.o. year old male who presents for Follow up . Acute Concerns: Patient reports this last couple of months he has being having extreme pain it started on his left hip and the pain radiated to his left knee, reports tissue was very tender to touch and he could notsleep due to pain, today patient still reports some pain on his knee Social History Social History Narrative Not on file Patient Active Problem List Diagnosis Abdominal aortic ectasia (CMS/HCC) Benign prostatic hyperplasia (BPH) with straining on urination Chronic hepatitis C (CMS/HCC) Common iliac aneurysm (CMS/HCC) Essential hypertension Hyperlipidemia Impacted cerumen Tubular adenoma of colon Smoker Diminished hearing, right Acute pain of left knee Left hip pain No family history on file. Review of Systems Constitutional: Negative. HENT: Negative. Respiratory: Negative. Cardiovascular: Negative. Musculoskeletal: Positive for arthralgias and myalgias. OBJECTIVE: Vitals: 06/18/24 0949 BP: (!) 140/82 BP Location: Left arm Patient Position: Sitting BP Cuff Size: Adult Pulse: 110 Resp: 20 Temp: 97.4 ??F (36.3 ??C) TempSrc: Oral Weight: 133 lb 12.8 oz (60.7 kg) Height: 5' 10 (1.778 m) Physical Exam Constitutional: Appearance: Normal appearance. Pulmonary: Effort: Pulmonary effort is normal. Breath sounds: Wheezing and rhonchi present. Musculoskeletal: Right hip: Normal. Left hip: Normal. Left knee: Tenderness present. Right lower leg: No edema. Left lower leg: No edema. Neurological: Mental Status: He is alert. Follow Up: No follow-ups on file. Current Outpatient Medications on File Prior to Visit Medication Sig Dispense Refill amLODIPine (Norvasc) 10 MG tablet Take 1 tablet (10 mg) by mouth Once per day. 90 tablet 1 Diclofenac Sodium 1 % gel Apply as needed up to 2g 4x/d to knee 100 g 1 lisinopril 30 MG tablet Take 1 tablet (30 mg) by mouth in the morning. 90 tablet 1 nicotine polacrilex (Nicorette) 4 MG gum Chew 1 each (4 mg) if needed for smoking cessation. 100 each 0 No current facility-administered medications on file prior to visit. Problem List Items Addressed This Visit Essential hypertension - Primary Today patient forgot to take his medication, blood pressure was borderline high I advised low-sodium diet I advised to take his medications every day without missing any dose I advised to monitor blood pressure at home and report back to me if blood pressure is persistentlyhigher than 140/90 Relevant Medications atorvastatin (Lipitor) 40 MG tablet Acute pain of left knee I will order an x-ray of his knee patient will be contacted with results I will refer patient to orthopedics in light of persistent pain Relevant Orders Referral to Orthopaedic Surgery XR Knee 4+ Views Left Left hip pain I will refer patient to orthopedics He will start PT next week Relevant Orders Referral to Orthopaedic Surgery Smoker Extensive counseling about smoking cessation on today Patient reports he has nicotine gum at home and he will try to quit smoking on his own documented in this encounter Miscellaneous Notes * Assessment & Plan Note - Ashley Mejias MD - 06/18/2024 10:55 AM EDT Associated Problem(s): Smoker Extensive counseling about smoking cessation on today Patient reports he has nicotine gum at home and he will try to quit smoking on his own * Assessment & Plan Note - Ashley Mejias MD - 06/18/2024 10:55 AM EDT Associated Problem(s): Left hip pain I will refer patient to orthopedics He will start PT next week * Assessment & Plan Note - Ashley Mejias MD - 06/18/2024 10:55 AM EDT Associated Problem(s): Acute pain of left knee I will order an x-ray of his knee patient will be contacted with results I will refer patient to orthopedics in light of persistent pain * Assessment & Plan Note - Ashley Mejias MD - 06/18/2024 10:54 AM EDT Associated Problem(s): Essential hypertension Today patient forgot to take his medication, blood pressure was borderline high I advised low-sodium diet I advised to take his medications every day without missing any dose I advised to monitor blood pressure at home and report back to me if blood pressure is persistentlyhigher than 140/90 documented in this encounter Plan of Treatment Scheduled Referrals Name Type Priority Associated Diagnoses Order Schedule Referral to Orthopaedic Surgery Outpatient Referral Routine Acute pain of left knee Left hip pain Expected: 06/18/2024 (Approximate), Expires: 06/18/2025 documented as of this encounter Procedures Procedure Name Priority Date/Time Associated Diagnosis Comments XR KNEE 4+ VIEWS LEFT Routine 06/18/2024 11:38 AM EDT Acute pain of left knee documented in this encounter Results * XR Knee 4+ Views Left (06/18/2024 11:38 AM EDT) Anatomical Region Laterality Modality Lower Extremities, Knee Left Radiogra phic Imaging 06/18/2024 11:3 8 AM EDT Narrative 06/18/2024 12:19 PM EDT ?[facility] ?[address] ?[place] [address] ?XRay Report ? Signed ? Patient: Pierre,Jeyson ?MR#: [id number] ? : 1950 ?Acct:[id number] ? Age/Sex: 73 / M ?ADM Date: 03/14/25 ? Loc: HO.HHCX ? Attending Dr: Ashley Mejias MD ? Ordering Physician: Ashley Medeiros MD ?? Date of Service: 06/18/24 ?? Procedure(s): XR knee LT 4V ?? Accession Number(s): [id number] ? cc: Ashley Medeiros MD ? EXAMINATION: [...] DD/ 1138 ? TD/TT: 06/18/24 1200 ? Body Shop Supervisor: ? Procedure Note Tonejerald, Image - 06/18/[address] [address] XRay Report Signed Patient: Marlene Jay#: [id number] : 2Acct:[id number] Age/Sex: 73 / MADM Date: 06/18/24 Loc: HO.HHCX Attending Dr: Ashley Mejias MD Ordering Physician: Ashley Medeiros MD Date of Service: 06/18/24 Procedure(s): XR knee LT 4V Accession Number(s): [id number] cc: Ashley Medeiros MD EXAMINATION: XR KNEE [...] 06/18/24 1216 DD/ 1138 TD/TT: 06/18/24 1200 Body Shop Supervisor: Ashley Mejias MD IMG XR PROCEDURES Fin al Result documented in this encounter Visit Diagnoses Diagnosis Essential hypertension- Primary Unspecified essential hypertension Acute pain of left knee Left hip pain Pain in joint, pelvic region and thigh Smoker Tobacco use disorder documented in this encounter Additional Health Concerns Assessment Noted Time PHQ-9 Depression Total Score: 0 06/19/19 25 9:50 AM EDT documented as of this encounter Care Teams Control Clerk Head Relationship Specialty Start Date End Date Ashley Medeiros MD [address] [place] [phone] PCP - General Family Medicine 11/02/18 documented as of this encounter
--- OUTSIDE RECORDS SUMMARY | 2024-06-18 13:28 | XMS_ITS | Continuity of Care Document ---
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 generic okay PRED FORTE 1% SUSP INSTILL 1 DROP IN EACH EYE EVERY MORNING NEEDED - Active fluorometholone 0.1 % eye drops,suspension INSTILL 1 DROP IN RIGHT EYE EVERY NIGHT AT BEDTIME - Active *fill Generic* FML Forte 0.25 % eye drops,suspension instill 1 drop by ophthalmic route [facility] OD - Active metformin 850 mg tablet take 1 tablet by oral route 2 times every day with morning and evening meals 850 MG - Active omeprazole 20 mg capsule,delayed release take 1 capsule by oral route every day 30 minutes to 1 hour before a meal 20 MG - Active glipizide ER 5 mg tablet, extended release 24 hr take 1 tablet by oral route every day with breakfast 5 MG - Active fenofibrate 160 mg tablet take 1 tablet by oral route every day 160 MG - Active aspirin 325 mg tablet take 1 tablet by oral route every day 325 MG - Active losartan 50 mg tablet take 1 tablet by oral route every day 50 MG - Active guaifenesin 400 mg tablet take 1 tablet by oral route daily prn - Active Benadryl 25 mg capsule take 1 capsule by oral route bid - Active melatonin 5 mg capsule - Active Lipofen 50 mg capsule - Active metoprolol tartrate 25 mg tablet take 1 tablet by oral route every day 25 MG - Active MAGNESIUM (unknown strength) Not Available - Active prednisolone acetate 1 % eye drops,suspension 1 gtts TID OD - Active ALLOPURINOL (unknown strength) Not Available - Active GLIPIZIDE (unknown strength) Not Available - Active LOSARTAN POTASSIUM (unknown strength) Not Available - Active POTASSIUM (unknown strength) Not Available - Active METOPROLOL TARTRATE (unknown strength) Not Available - Active OMEPRAZOLE (unknown strength) Not Available - Active DIFLUCAN (unknown strength) Not Available - Active ARTIFICIAL TEARS (unknown strength) PRN, OU Not Available - Active latanoprost 0.005 % eye drops instill 1 drop by ophthalmic route QHS OD - No Longer Active 90 day supply. generic okay Procedures Procedure Date Est Pt Complete Visual Mcmillan, Extended Pachymetry No Charge Retinal OCT Scan Computerized; Optic Nerve 22 Est Patient E/M Moderate MDM Visual Mcmillan, Extended Scan Computerized; Optic Nerve No Charge Retinal OCT Est Pt Complete Visual Mcmillan, Extended No Charge Retinal OCT Scan Computerized; Optic Nerve 21 Est Patient E/M Moderate MDM Ophth Serv: Med Exam; Interm E 20 Optos Fundus Photography Est Pt Complete Est Pt Complete No Charge Retinal OCT Est Pt Complete No Charge Retinal OCT Fundus Photography Est Pt Complete Ophth Serv: Med Exam; Interm E 17 Postop F/u Visit Incld Global 6 Postop F/u Visit Inc[facility] Global 6 Postop F/u Visit Inc[facility] Global 6 Postop F/u Visit Inc[facility] Global 6 Postop F/u Visit Inc[facility] Global 6 Keratoplasty (Corneal Transplant) Endoth elial Oct Iridotomy (dec Pro); Ex Transf Oct 16 Remov Corneal Epithel; W/wo Ch Oct 16 Anes- Eye; Corneal Transpl Oct Facility Fee Keratoplasty (Corneal Trans plant) End Fac Fee Iridotomy By Stab Incision Oct Facility Fee Remov Corneal Epithel; W/wo Oct Process Preserv Transp Corneal Oct 16 Ophth Serv: Med Exam; Interm E 16 Est Pt Exp Prob Focused Ophth Serv: Med Exam; Interm E 16 Pachymetry No Charge Retinal OCT Corneal Topography Est Pt Complete Fundus Photography New Pt Complete Advance Directives Directive Yes / No Effective Date File Name No Information Encounters Encounter Description Practice Location Reason(s) For Visit Diagnoses Date Provider Providers Copied on Encounter [facility], [address] [place] [address], [id number], tel:[phone] [facility] [place] [id number] No Information 3 Asota Norma. [address], [place], [id number], [place]. tel:[phone] [facility], [address] [place], [place], [id number], [place] tel:[phone] [facility] [place] [id number] Glaucoma, pressure check (chief complaint) Open angle with borderline findings, low risk, right eye Oct-2 2 Ivonne Pereira. [address] [place], [place], [id number], [place]. tel:[phone] Referring Provider: Randall Coronado, [address] [place], [address] . tel:[phone] Est Patient E/M Moderate MDM [facility], [address] [place], [place], [id number], [place] tel:[phone] [facility] [id number] Diabetic eye exam (chief complaint) Glaucoma (chief complaint) DMEK (chief complaint) Corneal transplant statusOpen angle with borderline findings, low risk, right eyePuckering of macula, right eyeDry eye syndrome of bilateral lacrimal glandsType 2 diabetes mellitus without complications alf (current) use of oral antidiabetic drugs 2 Ivonne Pereira. [address] [place], [place], [id number], [place]. tel:[phone] Referring Provider: Randall Coronado, [address] [place], [address] . tel:[phone] [facility], [address] [place], [place], [id number], [place] tel:[phone] [facility] [id number] Glaucoma (chief complaint) Diabetic eye exam (chief complaint) Open angle with borderline findings, low risk, right eyePuckering of macula, right eye 1 Ivonne Pereira. [address] [place], [place], [id number], [place]. tel:[phone] Referring Provider: Randall Coronado, [address] [place], [address] . tel:[phone] [facility], [address] [place], [place], [id number], [place] tel:[phone] [facility] [id number] No Information 1 Ivonne Pereira. [address] [place], [place], [id number], [place]. tel:[phone] Est Patient E/M Moderate MDM [facility], [address] [place], [place], [id number], [place] tel:[phone] [place] [id number] Diabetic eye exam (chief complaint) Glaucoma (chief complaint) Open angle with borderline findings, low risk, right eyePuckering of macula, right eyeType 2 diabetes mellitus without complications alf (current) use of oral antidiabetic drugsCorneal transplant statusDry eye syndrome of bilateral lacrimal glands 1 Ivonne Pereira. [address] [place], [place], [id number], [place]. tel:[phone] Referring Provider: Randall Coronado, [address] [place], [address] . tel:[phone] [facility], [address] [place], [place], [id number], [place] tel:[phone] [place] [phone] Open angle with borderline findings, low risk, right eye Dec- 0- 0 Ivonne Pereira. [address] [place], [place], [id number], [place]. tel:[phone] Referring Provider: Randall Coronado, [address] [place], [address] . tel:[phone] [facility], [address] [place], [place], [id number], [place] tel:[phone] [place] [id number] Type 2 diabetes mellitus without complications alf (current) use of oral hypoglycemic drugsCorneal transplant statusPuckeri ng of macula, right eyeOpen angle with borderline findings, low risk, right eye Nov-0 0 Ivonne Pereira. [address] [place], [place], [id number], [place]. tel:[phone] Referring Provider: Randall Coronado, [address] [place], [address] . tel:[phone] [facility], [address] [place], [place], [id number], [place] tel:[phone] [place] [id number] No Information 0 Ivonne Pereira. [address], [id number], . tel:[phone] [facility], [address] [place], [place], [id number], [place] tel:[phone] [facility] [place] [id number] Type 2 diabetes mellitus without complications alf (current) use of oral hypoglycemic drugsOther vitreous opacities, bilateralCorn eal transplant statusPuckeri ng of macula, right eye [facility]. [address] [place], [place], [id number], [place]. tel:[phone] Referring Provider: Elliot Contreras III, [address], [place], [address]. tel:[phone] [facility], [address] [place], [place], [id number], tel:[phone] [facility] [place] 855 No Information Addy Larkin. [address] [place], [place], [id number], [place]. tel:[phone] [facility], [address], [id number], [place] tel:[phone] [facility] [place] [id number] Type 2 diabetes mellitus without complications alf (current) use of oral hypoglycemic drugsOther secondary cataract, left eyeOther vitreous opacities, bilateralCorn eal transplant status [facility]. [address], [id number], [place]. tel:[phone] Referring Provider: Elliot Contreras III, [address], [place], [address]. tel:[phone] [facility], [address], [id number], [place] tel:[phone] [facility] [place] Type 2 diabetes mellitus without complications tank terminal gauger (current) use of oral antidiabetic drugsCombined forms of age-related cataract, left eyeOther secondary cataract, left eyeCorneal transplant status Ricarda Salvador. [address] [place], [place], [id number], [place]. tel:[phone] Referring Provider: Elliot Contreras III, [address], [place], [address]. tel:[phone] [facility], [address] [place], [place], [id number], [place] tel:[phone] [facility] [place] Corneal transplant status Gregoryzerbethany Salvador. [address] [place], [place], [id number], [place]. tel:[phone] Referring Provider: Madeleine Chowdary, [address] [place], [address] . tel:[phone] [facility], [address] [place], [place], [id number], [place] tel:[phone] [facility] [place] [id number] No Information 6 Maxwell Zeelane. [address] [place], [place], [id number], [place]. tel:[phone] Referring Provider: Crow Maxwell, [address] [place], [address] . tel:[phone] [facility], [address] [place], [place], [id number], [place] tel:[phone] [facility] [place] [id number] Inj conjunctiva and corneal abrasion w/o fb, right eye, init 6 Maxwell Zeelane. [address] [place], [place], [id number], [place]. tel:[phone] [facility], [address] [place], [place], [address], [place] tel:[phone] [facility] [place] Good OD (chief complaint) No Information 6 Gregoryzerbethany Madeleine. [address] [place], [place], [id number], [place]. tel:[phone] [facility], [address] [place], [place], [id number], [place] tel:[phone] [facility] [place] [id number] Corneal transplant status Oct-2 0-201 6 No Information [facility], [address] [place], [id number], [place] tel:[phone] [facility] [place] [id number] blurry vision, slight pain last night, watery eyes OD (chief complaint) No Information Oct-1 2-201 6 Boyd Randall. [address] [place], [place], [id number], [place]. tel:[phone] [facility], [address] [place], [place], [id number], [place] tel:[phone] [facility] No Information Oct-1 1- 6 No Information Referring Provider: Madeleine Chowdary, [address] [place], [address] . tel:[phone] [facility], [address] [place], [place], [id number], [place] tel:[phone] [facility] No Information Oct-1 - 6 Stradling Kieran. [address] [place], [place], [address], [place]. tel:[phone] [facility], [address] [place], [place], [id number], [place] tel:[phone] [facility] No Information Oct-1 - 6 [facility]. [address] [place], [place], [id number], [place]. tel:[phone] [facility], [address] [place], [place], [address], [place] tel:[phone] [facility] [place] [id number] Secondary corneal edema, right eye Oct-0 5-201 6 No Information Est Pt Exp Prob Focused [facility], [address] [place], [place], [id number], [place] tel:[phone] [facility] [place] [id number] Encounter for other preprocedural examination Dec-1 6 Dagoberto Sanches. [address] [place], [place], [id number], [place]. tel:[phone] [facility], [address] [place], [place], [id number], [place] tel:[phone] [facility] [place] [id number] Presence of intraocular lensType 2 diabetes mellitus without complications Secondary corneal edema, right eye Dec-0 6 No Information [facility], [address] [place], [place], [id number], [place] tel:[phone] [facility] [place] [id number] Secondary corneal edema, right eyeType 2 diabetes mellitus without complications Presence of intraocular lens Nov-0 6 No Information Referring Provider: Madeleine Chowdary, [address] [place], [address] . tel:[phone] [facility], [address] [place], [place], [id number], [place] tel:[phone] [facility] [place] Secondary corneal edema of right eyeType 2 diabetes mellitus without complications Oct-2 6 Rciarda Salvador. [address] [place], [place], [id number], [place]. tel:[phone] Referring Provider: Elliot Contreras III, [address], [place], [address]. tel:[phone] [facility], [address] [place] [address], [id number], [place] tel:[phone] [place] Corneal Disorder NosNonexudat Macular DegenChoriore tinal Scar NosDiabetes Mellitus Type 2, Uncomplicated Feb- 4 No Information [facility], [address] [place] [address], [id number], [place] tel:[phone] Conversion Location RCA Diabetes Mellitus Type 2, Uncomplicated Chorioretinal Scar NosNonexudat Macular DegenLens Replacement NecOcular Hypertension Sep-0 4 No Information [facility], [address] [place] [address], [place], [place], [id number], [place] tel:[phone] Conversion Location RCA Diabetes Mellitus Type 2, Uncomplicated Chorioretinal Scar NosNonexudat Macular DegenSenile Nuclear Cataract 4 No Information Family History Family Member Type Diagnosis Age At Onset Problem (finding) Family history of Diabe latrell mellitus Mother Problem (finding) Cancer Siblings Problem (finding) Diabetes mellitus Payers Payer name Insurance type Covered republican ID Authoriza tion(s) Prime Medicare Advantage CI [id number] Social History Type Description Quantity Date Captured Comments Sex Male Smoking Status No Information Chief Complaint And Reason For Visit No Information Reason For Referral Reason For Referral No Information Plan Of Treatment Date Type Action Status Future Order: Radiology Order OC T Retina ([id number]), Ordered on: Ordered Future Order: Radiology Order OC T Optic Nerve (RNFL) ([id number]), Ordered on: Ordered Future Order: Radiology Order OC T Retina ([id number]), Ordered on: Ordered Future Order: Radiology Order OC T Retina ([id number]), Ordered on: Ordered History Of Present Illness Encounter Date Complaint History Of Prese nt Illness Glaucoma, pressure check The 71 year old male presents for evaluation of Glaucoma, pressure check It affects VA not affected. The condition is stable. Pt states VA has been ok just needs reading glasses. Pt using Latanoprost OD QHS and Pred Forte BID AM. Pt is needing refills at this time. DMEK The patient is p resent for evaluation of DMEK. Pt using Pred QD for dmek Diabetic eye exam The 71 year ol d male presents for evaluation of Diabetic eye exam in the right eye and left eye. It affects VA not affected. The condition is stable. A1C: unknown.BG: unknown. Glaucoma The patient is p resent for evaluation of Glaucoma in the right eye and left eye. It affects superiorly. The condition is stable. Pt using Latanoprost OD QHS. Glaucoma The 70 year old male presents for evaluation of Glaucoma in the right eye and left eye. Latanoprost QHS OD Diabetic eye exam BG and A1C unk nown Diabetic eye exam Pt does not ch ja sugar levels regularly and does not know last A1C Glaucoma The patient is p resent for evaluation of Glaucoma in the right eye. Pt using Latnaprost QAM OD and FM QHS OD Denies changes to VA Pt needs refills Pt states he is expe riencing pain above the eye brow, w Pt states he is experiencing pain above the eye brow, watering eyes and nose. Pt has some redness. Pt is currently using Prednisolone 3 times a day and then starting tomorrow is 2 times a day. OD Pt states he is expe riencing pain above the eye brow, w Pt states he is experiencing pain above the eye brow, watering eyes and nose. Pt has some redness. Pt is currently using Prednisolone 3 times a day and then starting tomorrow is 2 times a day. OD Good Good OD blurry vision, sligh t pain last night, watery eyes blurry vision, slight pain last night, watery eyes OD Functional Status Date Functional Assessmen t No Information Instructions Date Instruction Additional Infor divine Impression/Plan - Co ntinue Latanoprost QHS OD only. Avg. Pachs. Steroid responder due to DMEK. Continue pf qam OD.(Dr Haynes ok to d/c pf gtts after 1 yr) Pt prefers to continue gtts. Related to Open angle with borderline findings, low risk, right eye Follow up - Return i n 6 months ce vf rnfl Impression/Plan - As ymptomatic with no distortion. Continue to observe Related to Puckering of macula, right eye Impression/Plan - Co ntinue artificial tears TID or more OU. Related to Dry eye syndrome of bilateral lacrimal glands Impression/Plan - Vi sual Field and OCT RNFL wnl OU, stable. ISlight increase in IOP; Avg Pachs. Continue Latanoprost QHS OD only. Possible low steroid responder. Related to Open angle with borderline findings, low risk, right eye Follow up - RTC 3-4 mo IOP check Impression/Plan - See primary DM plan Related to alf (current) use of oral antidiabetic drugs Impression/Plan - Co ntinue FML QHS OD. Patient atanoprost due to elevated IOP 02/11/2020 Related to Corneal transplant status Impression/Plan - No Non-Proliferative Diabetic Retinopathy, no Diabetic Macular Edema and no Neovascularization of the iris, disc, or elsewhere. Discussed ocular and systemic benefits of blood sugar control. Send notes to PCP. Check annually. Stable Related to Type 2 diabetes mellitus without complications Impression/Plan - Vi sual Field and OCT RNFL wnl OU. IOP stable; Avg Pachs. Possible low steroid responder. Continue Latanoprost QHS OD only. Related to Open angle with borderline findings, low risk, right eye Impression/Plan - OC T mac stable. Monitor Related to Puckering of macula, right eye Impression/Plan - See primary pl an Related to alf (current) use of oral antidiabetic drugs Impression/Plan - OC T MAC stable, continue to monitor. Related to Puckering of macula, right eye Impression/Plan - OC T RNFL and Visual Field wnl OU. IOP stable. possible low steroid responder. Continue Latanoprost QHS OD only. Related to Open angle with borderline findings, low risk, right eye Impression/Plan - In crease artificial tears TID or more OU. Related to Dry eye syndrome of bilateral lacrimal glands Impression/Plan - DM EK OD, Continue FML QHS OD. On latanoprost due to elevated IOP 02/11/2020 Related to Corneal transplant status Impression/Plan - No Background Diabetic Retinopathy, no Diabetic Macular Edema and no Neovascularization of the iris, disc, or elsewhere. Disc. ocular and systemic benefits of blood sugar control. The [place] [employer] recommends target glycohemoglobin at 7.0% or less to minimize incidence of retinopathy as well as other systemic complications of diabetes mellitus. Send notes to PCP. Check annually. Related to Type 2 diabetes mellitus without complications Follow up - Return i n 6 months for Visual Field (24-2), Complete Exam, OCT(RNFL), - Good iop continue latanto qam OD only Related to Open angle with borderline findings, low risk, right eye - IOP elevated OD, s tart latanoprost QHS OD. Continue FML QHS OD. Related to Corneal transplant status - Asymptomatic. Monitor Related to Puckering of macula, right eye - See priamary plan Related to L verna term (current) use of oral hypoglycemic drugs - possible low stero id responder start latanto qhs od Related to Open angle with borderline findings, low risk, right eye - No Non-Proliferati ve Diabetic Retinopathy, no Diabetic Macular Edema and no Neovascularization of the iris, disc, or elsewhere. Discussed ocular and systemic benefits of blood sugar control. Send notes to PCP. Check annually. Related to Type 2 diabetes mellitus without complications - trace not vision related Relat ed to Puckering of macula, right eye - No Background Diab etic Retinopathy, no Diabetic Macular Edema and no Neovascularization of the iris, disc, or elsewhere. Disc. ocular and systemic benefits of blood sugar control. The [place] [employer] recommends target glycohemoglobin at 7.0% or less to minimize incidence of retinopathy as well as other systemic complications of diabetes mellitus. Send notes to PCP. Check annually. stable. Related to Type 2 diabetes mellitus without complications - See priamary plan Related to L verna term (current) use of oral hypoglycemic drugs - FML QHS OD Related to Corne al transplant status - Patient prefers no treatment at this time. Related to Other vitreous opacities, bilateral - No Background Diab etic Retinopathy, no Diabetic Macular Edema and no Neovascularization of the iris, disc, or elsewhere. Disc. ocular and systemic benefits of blood sugar control. The [place] [employer] recommends target glycohemoglobin at 7.0% or less to minimize incidence of retinopathy as well as other systemic complications of diabetes mellitus. Send notes to PCP. Check annually. Related to Type 2 diabetes mellitus without complications - See priamary plan Related to L verna term (current) use of oral hypoglycemic drugs - Patient prefers no treatment at this time. trace Related to Other secondary cataract, left eye - Discussed signs an d symptoms of PVD/floaters. Discussed treatment options with patient. Patient prefers no treatment at this time. Related to Other vitreous opacities, bilateral - FML QHS OD Related to Corne al transplant status - Patient doing well. FML QHS OU . Related to Corneal transplant status - See other Diabetic plan Relate d to alf (current) use of oral antidiabetic drugs - No Non-Proliferati ve Diabetic Retinopathy, no Diabetic Macular Edema and no Neovascularization of the iris, disc, or elsewhere. Discussed ocular and systemic benefits of blood sugar control. Check annually. Related to Type 2 diabetes mellitus without complications - Opacified capsule not affecting vision. No indication for treatment. Return if decreased vision. Related to Other secondary cataract, left eye - Patient doing well . FML QHS OU. RTC as scheduled in October for CEE or sooner if any changes in vision or worsening of symptoms. Related to Corneal transplant status - Patient doing well . Stitch removed today and betadine instilled. Taper drops as instructed on sheet given. Vision much improved today. Explained to patient how to taper drops but that he will be on 1 drop daily for life to reduce risk of rejection. Related to Corneal transplant status - last check prior t o SK at time of DMEK OD w/ 8.5 graft with 9mm strip (9mm marker)cornea looks good today. pt more comfortable with BCL in and we will leave in until sx. Related to Secondary corneal edema, right eye - I would recommend DMEK surgery or replacing endothelial cells with descemet's membrane. The rejection rate with this procedure is 2% versus 20% with previous corneal transplants. The visual recovery is faster but may still take weeks to months. There are restrictions on head positioning in the post op period and no travel at higher altitudes is permitted for one week. There is a chance of needing air placed in the office again for better adherence. Risks of DMEK include bleeding and infection. Risks include rejection, need for additional surgery, need for glasses after, and the risks from the medications used. Steroids should not be stopped without instruction by a doctor. Information packet given. Questions answered. Patient will require a surgical peripheral iridotomy to prevent pupil block glaucoma during surgery. SK at time of DMEK OD Related to Secondary corneal edema, right eye - In good position. CTM. Related to Presence of intraocular lens - No Non-Proliferati ve Diabetic Retinopathy, no Diabetic Macular Edema and no Neovascularization of the iris, disc, or elsewhere. Discussed ocular and systemic benefits of blood sugar control. Check annually. Related to Type 2 diabetes mellitus without complications - Edema, inferior bu llae. Discussed doing DMEK Right eye with PI. Would have patient start [id number] drops and ointment to see if this decreases the edema. F/U with Dr Carver in 1 month. Will get patient on schedule for DMEK since scheduling is so far out. , Pseudophakic OU,Capsule clear. patient reports needing cortex removal s/p sx in 2013 (pt reports unknown complications during cataract surgery) 7mm dilation. Stop Pred and start Beverley 128. Please Schedule patient to be seen in [address] Carver to see if the edema has decreased and schedule DMEK/PI Right eye as schedule allows. Will send drops in as surgery date gets closer. 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 CTM. Related to Presence of intraocular lens - No Non-Proliferati ve Diabetic Retinopathy, no Diabetic Macular Edema and no Neovascularization of the iris, disc, or elsewhere. Discussed ocular and systemic benefits of blood sugar control. Send notes to PCP. Check annually. Related to Type 2 diabetes mellitus without complications - No Non-Proliferati ve Diabetic Retinopathy, no Diabetic Macular Edema and no Neovascularization of the iris, disc, or elsewhere. Discussed ocular and systemic benefits of blood sugar control. Send notes to PCP. Check annually. Related to Type 2 diabetes mellitus without complications - EBMD, Pseudophakic OU, reports needing cortex removal s/p sx in 2013 (pt reports unknown complications during cataract surgery) Also reports dr told him he had a hole and put in a stent Begin Pred QID OD, ATs q1-2h.Will schedule cornea consultation; edu pt to rtc immediately if any changes in vision or worsening of symptoms. 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 IOL looks great. Unexplained edema. Followed by Dr. De Leon. Trace diffuse thickening of retina. Do not recommend treatment of the retina at this time. Vision loss due to corneal edema. Patient on combigan bid and lotemax ointment qdaily. PF bid. consider increasing PF OD. 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 Observe for now. Related to Nonexudative Macular Degeneration Ocular Hypertension OD - Presscribed combigan bid OD. Instructed to follow-up in 1-[address] De Leon for further management. 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 Possibly old CNV. Now Dry. 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 The patient understands that controlling BS and BP is the best way to stabilize vision at this time. 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 Possibly old CNV. Now Dry. 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 Cleared from a retinal standpoint. Discussed small possibility that the CNV may become re-actfivated after surgery but that currently, it is not active. Related to Senile Nuclear Cataract Diabetes Mellitus Ty pe 2, Uncomplicated OU - I emphasized the importance of blood sugar and blood pressure control. The patient understands that controlling BS and BP is the best way to stabilize vision at this time. We also discussed the importance of routine dilated eye exams. Related to Diabetes Mellitus Type 2, Uncomplicated Nonexudative Macular Degeneration OS - No IRF/SRF. Observe for now. Related to Nonexudative Macular Degeneration Assessments Type Assessment Date No Information Patient Care Teams Name Effective Dates (start - stop) Status Members No Information
--- OUTSIDE RECORDS SUMMARY | 2024-06-18 13:28 | XMS_ITS | Encounter Summary ---
Author Organization [employer] Address [address] [facility] 7t [place] [address] Care Team Providers Care Airplane Navigator Name Role Phone Ashley Medeiros MD Primary Care Provide r Reason for Visit * Reason Onset Date Comments Nurse Triage 05/20/2024 Encounter Details Date Type Department Care Team ([facility] st Contact Info) Description 05/20/2024 Telephone [facility] MEDICINE [address] [place], [place] [phone] Ashley Medeiros MD [address] [place] [address] Nurse Triage Social History Tobacco Use Types Packs/Day Years Used Date Smoking Tobacco: Every Day Cigarettes Passive Smoke Exposure: Current Smokeless Tobacco: Never Housing Stability Answer Date Recorded What is your housing situation today? I have alejandrinamadelyn morse 08/05/[address] you [...] from getting things needed for daily living? Yes, it has kept me from non-medical meetings, work, or getting things that I need 08/05/2023 Utilities Answer Date Recorded In the past 12 months, has t he electric, gas, oil or water [employer] threatened to shut off services in your home? No 08/05/2023 Sex and Gender Information Value Date Recorded Sex Assigned at Male 02/04/2022 10:31 AM EDT Legal Sex Male 10:31 AM EDT Gender Identity Male 05/21/2024 1:46 PM EST Sexual Orientation Straight 05/21/2024 1: 46 PM EST documented as of this encounter Miscellaneous Notes * Telephone Encounter - Linda Montes RN - 05/20/2024 2:31 PM EST Call returned to Jeyson Jay to triage below. Reports having left knee pain around knee cap. Report shaving pain x 2 weeks. Per pt same pain as when seen at [facility]> Per pt did take prednisone as directed with minimal relief. Pt taking ibuprofen PRN for pain. Per pt having swelling and having rash oninner knee. Per pt tender to touch. Pt able to ambulate but with a limp. Pt has full ROM. Pt has not started PT yet. Reports has appt on 05/28/24 for PT. Pt advised of disposition, agrees to sick appttomorrow , no appts on teams at time of call. Set up [place] for patient as no transportation available. Set up for a 1pm garbage pick up man time. Reviewed home care advise, ER precautions and reasons to call back. Protocol Used: Knee Pain (Adult) Protocol-Based Disposition: See in Office or Video Visit Today Override (Final) Disposition: See in Office or Video Visit Today or Tomorrow Override Reason: No appointments available Future Appointments Date Time Provider Department Center 05/21/2024 1:45 PM NEELAM Genao MEDICINE [facility] 06/18/2024 10:00 AM Ashley Mejias MD [facility] Insurance verified as active per Real Time Eligibility in [facility]. Video visit offer not recorded Positive Triage Question: * Painful rash with multiple small blisters grouped together (i.e., dermatomal distribution or band or stripe ) * All higher-acuity triage questions were negative Care Advice Discussed: * Reasons To Call Back - You become worse * Telephone Encounter - Shelby Ricardo - 05/20/2024 2:22 PM EST Symptom: Knee Pain - Not From Injury Outcome: Talk to a nurse or provider within 15 minutes Reason: Can't walk (unless normally can't walk) The caller accepted this outcome. [phone] documented in this encounter Plan of Treatment Not on file documented as of this encounter Visit Diagnoses Not on filedocumented in this encounter Care Teams Airplane Navigator Relationship Specialty Start Date End Date Ashley Medeiros MD [address] [place] [phone] PCP - General Family Medicine 11/02/18 documented as of this encounter
--- OUTSIDE RECORDS SUMMARY | 2024-06-18 13:28 | XMS_ITS | Encounter Summary ---
Author Organization [employer] Address [address] [facility] 7t [place] [address] Care Team Providers Care Burning Supervisor Name Role Phone Ashley Medeiros MD Primary Care Provide r Reason for Visit * Reason Comments sick on site Encounter Details Date Type Department Care Team (Late st Contact Info) Description 05/21/2024 1:45 PM EST Office Visit [facility] MEDICINE [address] [place], [place] [phone] Madai Read, ANP [address] [place] [address] Acute pain of left knee (Primary Dx); Essential hypertension; Smoker Social History Tobacco Use Types Packs/Day Years Used Date Smoking Tobacco: Every Day Cigarettes Passive Smoke Exposure: Current Smokeless Tobacco: Never Tobacco Cessation:Ready to Q uit: Not Asked; Counseling Given: Not Answered Housing Stability Answer Date Recorded What is [...] Sign Reading Time Taken Comments Blood Pressure 145/90 05/21/2024 2:05 PM EST Pulse 75 05/21/2024 2:05 PM EST Temperature 36.6 ??C (97.8 ??F) 05/21/2024 2:05 PM ES T Respiratory Rate 16 05/21/2024 2:05 PM EST Oxygen Saturation 97% 05/21/2024 2:05 PM EST Inhaled Oxygen Concentration - - Weight 63.5 kg (140 lb) 05/21/2024 2:05 PM EST Height - - Body Mass Index 21.29 05/13/2023 1:12 PM EST documented in this encounter Plan of Treatment Scheduled Orders Name Type Priority Associated Diagnoses Orde r Schedule XR Knee 1-2 Views Left Imaging Routine Acute pain of left knee Expected: 05/21/2024, Expires: 05/21/2025 documented as of this encounter Visit Diagnoses Diagnosis Acute pain of left knee- Primary Essential hypertension Unspecified essential hypertension Smoker Tobacco use disorder documented in this encounter Care Teams Burning Supervisor Relationship Specialty Start Date End Date Ashley Medeiros MD [address] [place] [phone] PCP - General Family Medicine 11/02/18 documented as of this encounter
--- OUTSIDE RECORDS SUMMARY | 2024-06-18 13:28 | XMS_ITS | Data Portability ---
Author Organization [place] - [facility], Allergy Address [address] [address] Care Team Providers Care Sofa Back Upholsterer Name Role Phone ELISA LU Primary Care Provider Assessment No assessment recorded. Plan of Treatment Reminders Order Date Submit Date Provider Last Modified By Organization Details Last Modified Time Details Appointments None recorded. Lab None recorded. Referral None recorded. Procedures None recorded. Surgeries None recorded. Imaging MRI, brain + internal auditory canal, w/wo contrast - MRI, BRAIN + INTERNAL AUDITORY CANAL, W/WO CONTRAST [facility] [address] [place], [address], 16:35:27 Medication Orders None recorded. Patient TargetsNo targets recorded. Patient InstructionsNo instructions recorded. Reason for Referral None Reported. Results Created Date Observation Date Name Description Value Unit Range Abnormal Flag Note LastModifiedBy Organization Detail LastModifiedTime 10/30/19 24 audio gram No observ ation record ed. BARCODE Not Available 2023 14:16:12 11/20/19 24 11/20/2023 MRI, brain + brain stem, w/wo contr ast [facility] Access ion Number : [id number] Charley payne Name: Jeyson Jaya l Record Number : [id number] Date of : 1950 Date of Exam: 2023 Referr ravi Physic maribell: Aparna [facility] [place] [address] [facility] [address] [place] [address] Exam: MR Brain (C-/C+ ) CPT 75937 Room Descri ption: Vicco Siem Espr 1.5 MR Brain (C-/C+ ) CPT 51639 INDICA TION / CLINIC AL QUESTI ON: H90.5 - Unspec ified sensor ineura l hearin g loss, , MRI, BRAIN + CASH SALES AUDIT CLERK AL AUDITO RY CANAL, W/WO CONTRA ST\E E\[facility] (MRI, BRAIN + CASH SALES AUDIT CLERK AL AUDITO RY CANAL, W/WO CONTRA ST)Cli nical Indica tion: Asymme tric sensor ineura l hearin g loss H90.5 - Unspec ified sensor ineura l hearin g loss, , MRI, BRAIN + CASH SALES AUDIT CLERK AL AUDITO RY CANAL, W/WO CONTRA ST\E E\[facility] (MRI, BRAIN + CASH SALES AUDIT CLERK AL AUDITO RY CANAL, W/WO CONTRA ST)Cli nical Indica tion: Asymme tric sensor ineura l hearin g loss TECHNI QUE: MRI of the brain with attent ion to the international accountant al audito ry canals was perfor med [...] or abnorm al enhanc ement in the international accountant al audito ry canals or cerebe llopon [...] onical ly Signed By: Yamileth siegel MD [facility] ([facility]) [address], [place], [address], 11/21/2023 12:27:09 Result Notes None recorded. Problems Name Problem SNOMED Code Status Onset Date Resolution Date Notes Provider Name and Address Organization Details Recorded Time Sensorineural hearing loss of bilateral ears 185793095 Active 2023 EDMUND PADILLA, [address] [address], [place], [phone], [facility] 4 09:40:16 Asymmetrical sensorineural hearing loss 239352163 Active 2023 APARNA Grijalva MD [address] [place] [address], [place], [phone], [facility] 4 10:42:49 Problem Notes None recorded. Procedures Surgical History Date Name Laterality Status Provider Name and Address Organization Details Recorded Time 10/30/2023 Comp Audio with Tymps (41916 & 72682) completed EDMUND PADILLA [address], [phone], [facility] 10/30/2023 09:40:00 Imaging Results Imaging Date Name Status LastModified by Organiz ation Details LastModified Time 10/30/2023 audiogram completed BAR[facility] Information no t available 10/30/2023 14:16:12 11/20/2023 MRI, brain + brain stem, w/wo contrast completed [facility] ([facility]) [address], [place], [address], 11/21/2023 12:27:09 Procedure Notes None recorded. Medical [...] Updated DateTime 10/30/2023 177.8 cm 23 kg/m2 24577.78 g Meenakshi Neely [place] - [facility] 10/30/2023 10:31:12 Social History None recorded. Functional Status None recorded. Mental Status None recorded. Family History Nothing Reported. Medical History No medical history recorded. Past Encounters Encounter ID Performer Location Encounter Start Date Encounter Closed Date Diagnosis/Indication Diagnosis SNOMED-CT Code Diagnosis ICD10 Code Diagnosis Note [id number] APARNA ROBISON MD [facility] [address] [address] 10/30/2023 09:08:48 10/30/2023 10:51:41 Sensorineural hearing loss of bilateral ears 322513297 H90.3 Right Ear:Normal hearing through 500 Hz sloping to a profound SNHL with excellent speech discrimina tion.Type A tympanogra m.Left Ear:Normal hearing through 1K Hz sloping to a severe SNHL with excellent speech discrimina tion.Type A tympanogra m. Asymmetric al sensorineural hearing loss 280450608 H90.5 Given the asymmetric hearing loss I [...] Name 10/30/2023 1 [employer] (MEDICARE REPLACEMENT PPO) [id number] Jeyson Jay [id number] Jeyson Jay Notes Date Note Type Note Provider Name and Address Organization Details Recorded Time 10/30/2023 text/html In March or April he noted decreased hearing AD. Denies tinnitus. he did not see a doctor when he noted the hearing change. Audio today shows normal sloping to profound SNHL AD and normal sloping to severe . APARNA ROBISON MD [address] [place] [address], [phone], [facility] - [facility] 10/30/2023 10:48:14
--- OUTSIDE RECORDS SUMMARY | 2024-06-18 13:28 | XMS_ITS | Encounter Summary ---
Author Organization [employer] Address [address] [facility] 7t [place] [address] Care Team Providers Care Rotary Drier Name Role Phone Ashley Medeiros MD Primary Care Provide r Encounter Details Date Type Department Care Team (Latest Contact Info) Description 05/21/2024 Travel Social History Tobacco Use Types Packs/Day [...] on filedocumented in this encounter Care Teams Rotary Drier Relationship Specialty Start Date End Date Ashley Medeiros MD [address] [place] [address] PCP - General Family Medicine 11/02/18 documented as of this encounter
--- OUTSIDE RECORDS SUMMARY | 2024-06-18 13:28 | XMS_ITS | Encounter Summary ---
Author Organization [employer] Address [address] [facility] 7t [place] [address] Care Team Providers Care Vegetable Harvest Machine Operator Name Role Phone Ashley Medeiros MD Primary Care Provide r Encounter Details Date Type Department Care Team (Late st Contact Info) Description 12/17/2022 Orders Only [facility] MEDICINE [address] [place] [address] ProviderNiharika MD Social History Tobacco Use Types Packs/Day Years Used Date Smoking Tobacco: Never Assessed Sex and Gender Information Value Date Recorded Sex Assigned at Male 02/04/2022 10:31 AM EDT Legal Sex Male 10:31 AM EDT Gender Identity Male 05/21/2024 1:46 PM EST Sexual Orientation Straight 05/21/2024 1: 46 PM EST documented as of this encounter Plan of Treatment Not on file documented as of this encounter Procedures Procedure Name Priority Date/Time Associated Diagnosis Comments HEPATITIS C VIRAL RNA, QUANTITATIVE, REAL-TIME PCR Routine 05/13/2023 2:09 PM EST COLONOSCOPY Routine 12/09/2016 documented in this encounter Results * Hepatitis C Viral RNA, Quantitative, Real-Time PCR (05/13/2023 2:09 PM EST) Hepatitis C Viral Load <15 NOT DETECTED NOT DETECTED IU/mL [facility] HCV Log PCR <1.18 NOT DETECTED NOT DETECTED Log IU/mL [facility] Comment:This test was perfor med using Real-Time Polymerase ChainReaction.Reportable Range: 15 IU/mL to 100,000,000 IU/mL(1.18 Log IU/mL to 8.00 Log IU/mL).The analytical performance characteristics of thisassay have been determined by [employer].The modifications have not been cleared or approved bythe FDA. This assay has been validated pursuant to theCLIA regulations and is used for clinical purposes.For more information on this test, go to:http://education.Apiary.MyCoop/faq/HLB00j0(This link is being provided for informational/educational purposes only.)THIS TEST WAS PERFORMED AT:[employer] [place] [phone] DOUGLAS MD 05/13/2023 2:09 PM EST 05/14/2023 7:53 AM EST Ashley Mejias MD LAB BLOOD ORDERABLES Final Result [facility] [address] [place] [phone] * Hm Colonoscopy (12/09/2016) us Historical Provider HEALTH MAINTENANCE Final Result documented in this encounter Visit Diagnoses Not on filedocumented in this encounter Care Teams Vegetable Harvest Machine Operator Relationship Specialty Start Date End Date Ashley Medeiros MD [address] [place] [phone] PCP - General Family Medicine 11/02/18 documented as of this encounter
== END 2024-06-18 11:39 | disposition home or self-care (01) ==
LOC: HO.HHCX 11:38
PROVIDERS: Visit Provider Internal Medicine
DX: M25.562 Pain in left knee (principal)
CPT/HCPCS: 73564

== ENCOUNTER → 2024-06-18 11:38 | Outpatient (BNV) | payer MEDICARE, SELFPAY | PROVIDERS: Visit Provider Radiology Diagnostic Radiology | DX: M25.562 Pain in left knee (principal) | CPT/HCPCS: 73564 ==

== ENCOUNTER 2024-08-03 10:08 | Outpatient (REF) | payer MEDICARE, SELFPAY ==
--- OUTSIDE RECORDS SUMMARY | 2024-08-04 11:10 | XMS_ITS | Data Portability ---
Author Organization [place] - [facility], Allergy Address [address] [address] Care Team Providers Care Courier Name Role Phone ELISA LU Primary Care [...] INTERNAL AUDITORY CANAL, W/WO CONTRAST 2023 [facility] [address] [place], [address], 16:35:27 Medication Orders None recorded. Patient TargetsNo targets recorded. Patient InstructionsNo instructions recorded. Reason for Referral None Reported. Results Created Date Observation Date Name Description Value Unit Range Abnormal Flag Note LastModifiedBy Organization Detail LastModifiedTime 10/30/19 24 audio gram No observ ation record ed. BARCODE Not Available 2023 14:16:12 11/20/19 24 11/20/2023 MRI, brain + brain stem, w/wo contr ast [facility] Access ion Number : [id number] Charley payne Name: Jeyson Jaya l Record Number : [id number] Date of : 1950 Date of Exam: 2023 Referr ravi Physic maribell: Aparna Rogers [facility] [place] [address] [facility] [address] [place] [address] Exam: MR Brain (C-/C+ ) CPT 91265 Room Descri ption: Rodeo Siem Espr 1.5 MR Brain (C-/C+ ) CPT 28621 INDICA TION / CLINIC AL QUESTI ON: H90.5 - Unspec ified sensor ineura l hearin g loss, , MRI, BRAIN + EMOTIONAL SUPPORT TEACHER AL AUDITO RY CANAL, W/WO CONTRA ST\E E\[facility] (MRI, BRAIN + EMOTIONAL SUPPORT TEACHER AL AUDITO RY CANAL, W/WO CONTRA ST)Cli nical Indica tion: Asymme tric sensor ineura l hearin g loss H90.5 - Unspec ified sensor ineura l hearin g loss, , MRI, BRAIN + EMOTIONAL SUPPORT TEACHER AL AUDITO RY CANAL, W/WO CONTRA ST\E E\[facility] (MRI, BRAIN + EMOTIONAL SUPPORT TEACHER AL AUDITO RY CANAL, W/WO CONTRA ST)Cli nical Indica tion: Asymme tric sensor ineura l hearin g loss TECHNI QUE: MRI of the brain with attent ion to the internal medicine veterinary technician al audito ry canals was perfor med [...] or abnorm al enhanc ement in the internal medicine veterinary technician al audito ry canals or cerebe llopon [...] onical ly Signed By: Yamileth siegel MD [facility] ([facility]) [address], [place], [address], 11/21/2023 12:27:09 Result Notes None recorded. Problems Name Problem SNOMED Code Status Onset Date Resolution Date Notes Provider Name and Address Organization Details Recorded Time Sensorineural hearing loss of bilateral ears [id number] Active 2023 EDMUND PADILLA, [place] [address], [place], [address], [facility] 4 09:40:16 Asymmetrical sensorineural hearing loss 818801522 Active 2023 APARNA Grijalva MD [address] [place] [address], [place], [address], [facility] 4 10:42:49 Problem Notes None recorded. Procedures Surgical History Date Name Laterality Status Provider Name and Address Organization Details Recorded Time 10/30/2023 Comp Audio with Tymps (13722 & 73272) completed EDMUND PADILLA [address], [address], [facility] 10/30/2023 09:40:00 Imaging Results Imaging Date Name Status LastModified by Organiz ation Details LastModified Time 10/30/2023 audiogram completed BARCODE Information no t available 10/30/2023 14:16:12 11/20/2023 MRI, brain + brain stem, w/wo contrast completed [facility] ([facility]) [address], [place], [address], 11/21/2023 12:27:09 Procedure Notes None recorded. Medical [...] Updated DateTime 10/30/2023 177.8 cm 23 kg/m2 58703.78 g Meenakshi Neely [place] - [facility] 10/30/2023 10:31:12 Social History None recorded. Functional Status None recorded. Mental Status None recorded. Family History Nothing Reported. Medical History No medical history recorded. Past Encounters Encounter ID Performer Location Encounter Start Date Encounter Closed Date Diagnosis/Indication Diagnosis SNOMED-CT Code Diagnosis ICD10 Code Diagnosis Note [id number] APARNA ROBISON MD [facility] [address] [address] 10/30/2023 09:08:48 10/30/2023 10:51:41 Sensorineural hearing loss of bilateral ears 521567112 H90.3 Right Ear:Normal hearing through 500 Hz sloping to a profound SNHL with excellent speech discrimina tion.Type A tympanogra m.Left Ear:Normal hearing through 1K Hz sloping to a severe SNHL with excellent speech discrimina tion.Type A tympanogra m. Asymmetric al sensorineural hearing loss 866615301 H90.5 Given the asymmetric hearing loss I [...] Name 10/30/2023 1 [employer] (MEDICARE REPLACEMENT PPO) [id number] Jeyson Jay [id number] Jeyson Jay Notes Date Note Type Note Provider Name and Address Organization Details Recorded Time 10/30/2023 text/html In March or April he noted decreased hearing AD. Denies tinnitus. he did not see a doctor when he noted the hearing change. Audio today shows normal sloping to profound SNHL AD and normal sloping to severe . APARNA ROBISON MD [address] [place] [address], [address], [facility] - [facility] 10/30/2023 10:48:14
--- OUTSIDE RECORDS SUMMARY | 2024-08-04 11:10 | XMS_ITS | Clinical Summary ---
Author Organization [employer] Address [address] [facility] [address] [place] [address] Care Team Providers Care Client Services Director Name Role Phone Ashley Medeiros MD Primary Care Provide r Allergies Active Allergy Reactions Criticality Noted Date Comments Penicillins 10/09/2016 Other reaction(s): Rash Medications nicotine polacrilex (Nicorette) 4 MG gumIndications:Sm oker Chew 1 each (4 mg) if needed for smoking cessation. 100 each 4 Active lisinopril 30 MG tabletIndications :Essential hypertension Take 1 tablet (30 mg) by mouth in the morning. 90 tablet 1 5 Active amLODIPine (Norvasc) 10 MG tabletIndications :Essential hypertension Take 1 tablet (10 mg) by mouth Once per day. 90 tablet 1 5 05/21/19 26 Active Diclofenac Sodium 1 % gelIndications:Ac [place] pain of left knee Apply as needed up to 2g 4x/d to knee 100 g 1 5 Active atorvastatin (Lipitor) 40 MG tabletIndications :Essential hypertension Take 1 tablet (40 mg) by mouth Once per day. 90 tablet 1 5 06/19/19 26 Active Active Problems Problem Noted Date Diagnosed Date [...] hepatitis C 10/14/2016 04/11/2023 Essential hypertension 10/09/2016 Assessment & Plan (06/18/2024 10:54 AM EDT): [...] Encounters Date Type Department Care Team Description 07/23/2024 Telephone [facility] [address] [place] [id number] Robert Parker MD 07/21/[address] [address] Ashley Meediros MD Referral 06/23/[address] [address] Ashley Medeiros MD x-ray results 06/18/2024 10:00 AM EDT Office Visit [address] [address] Ashley Medeiros MD Essential hypertension (Primary Dx); Acute pain of left knee; Left hip pain; Smoker 06/18/2024 Travel 05/21/2024 1:45 PM EST Office Visit [address] [address] Madai Read ANP Acute pain of left knee (Primary Dx); Essential hypertension; Smoker 05/21/2024 Travel 05/20/[address] [address] Ashley Medeiros MD Nurse Triage 05/07/2024 Telephone [facility] [address] [place] [address] Robert Parker MD from Last 3 Months Immunizations Name Administration [...] Colorectal Cancer Screening 12/09/2021 COVID-19 Vaccine (3 season) 2023 07/29/2020, 07/01/2020 Influenza Vaccine (#1) 2023 , 01/04/2022, 01/25/2021, Additional history exists Alcohol/Substance Use Screening 05/21/2025 05/21/2024 Depression Screening 06/18/2025 06/18/2024, 06/19/19 25 SDOH Screening 06/18/2025 06/18/2024 Tobacco Screening 06/18/2025 [...] AM EDT Narrative 06/18/2024 12:19 PM EDT ?[facility] ?[address] ?[place] [address] ?XRay Report ? Signed ? Patient: Pierre,Jeyson ?MR#: [id number] ? : 1950 ?Acct:[id number] ? Age/Sex: 73 / M ?ADM Date: 03/14/25 ? Loc: HO.HHCX ? Attending Dr: Ashley Mejias MD ? Ordering Physician: Ashley Medeiros MD ?? Date of Service: 06/18/24 ?? Procedure(s): XR knee LT 4V ?? Accession Number(s): [id number] ? cc: Ashley Medeiros MD ? EXAMINATION: [...] DD/ 1138 ? TD/TT: 06/18/24 1200 ? Metal Wire Coating Operator: ? Procedure Note Hazel Lucero - 06/18/[address] [address] XRay Report Signed Patient: Marlene Jay#: [id number] : 1950cct:[id number] Age/Sex: 73 / MADM Date: 06/18/24 Loc: HO.HHCX Attending Dr: Ashley Mejias MD Ordering Physician: Ashley Medeiros MD Date of Service: 06/18/24 Procedure(s): XR knee LT 4V Accession Number(s): [id number] cc: Ashley Medeiros MD EXAMINATION: XR KNEE [...] 06/18/24 1216 DD/ 1138 TD/TT: 06/18/24 1200 Metal Wire Coating Operator: us Ashley Santacruz Abundio Mejias MD IMG XR PROCEDURES Fin al Result * XR Hip 2 or 3 Views Left (05/06/2024 11:31 AM EST) Anatomical Region Laterality Modality Lower Extremities, Hip Left Radiograp hic Imaging 05/06/2024 11:3 1 AM EST Narrative 05/06/2024 12:32 PM EST ?[facility] ?[address] ?[place] [address] ?XRay Report ? Signed ? Patient: Pierre,Jeyson ?MR#: [id number] ? : 1950 ?Acct:[id number] ? Age/Sex: 73 / M ?ADM Date: 05/06/24 ? Loc: HO.HHCX ? Attending Dr: Robert Parker MD ? Ordering Physician: Robert Parker MD ?? Date of Service: 05/06/24 ?? Procedure(s): XR hip LT min 2V ?? Accession Number(s): [id number] ? cc: Robert Parker MD ? EXAMINATION: [...] signed by Glenn Euceda MD in OV> ?05/06/ 1229 ? DD/ 1131 ? TD/TT: 05/06/25 1156 ? Metal Wire Coating Operator: ? Procedure Note Donotuseinterpreter, Image - 05/06/2024 [facility] [address] [place] [address] XRay Report Signed Patient: Marlene Jay#: [id number] : 2Acct:[id number] Age/Sex: 73 / MADM Date: 05/06/24 Loc: HO.HHCX Attending Dr: Robert Parker MD Ordering Physician: Robert Parker MD Date of Service: 05/06/24 Procedure(s): XR hip LT min 2V Accession Number(s): [id number] cc: Robert Parker MD EXAMINATION: XR HIP [...] Glenn Euceda MD 05/06/2024 12:29 PM EST Dictated By: Glenn Euceda MD Signed By: <Electronically signed by Glenn Euceda MD in OV> 05/06/24 1229 DD/ 1131 TD/TT: 05/06/24 1156 Metal Wire Coating Operator: Robert Parker MD IMG XR PROCEDURES Final Result * (ABNORMAL) Lipid Panel, Standard (05/13/2023 2:09 PM EST) Triglycerides 66 <150 mg/dL [facility] Comment:Desirable Triglyceri de: less than 150 mg/dLBorderline High Triglyceride 150-199 mg/dLHigh Triglyceride: 200-499 mg/dLVery High Triglyceride: greater than or equal to 5OO mg/dL Cholesterol 200(H) <200 mg/dL [facility] Comment:Desirable Cholestero l: less than 200 mg/dLBorderline High Cholesterol: 200-239 mg/dLHigh Cholesterol: greater than 239 mg/dL LDL Cholesterol Calculated 129(H) <100 mg/dL [facility] Comment:Desirable LDL: less than 100 mg/dLNear Optimal/Above Optimal LDL: 110- 129 mg/dLBorderline High LDL: 130-159 mg/dLHigh LDL: 160-189 mg/dLVery High LDL: greater than or equal to 190 mg/dL HDL Cholesterol 58 >40 mg/dL [facility] Comment:Desirable HDL: great er than 40 mg/dL Note: This HDL assay may give artificially low results in patients with liver disease. Blood Venous blood specimen / Unknown 05/13/2023 2:09 PM EST 05/13/2023 4:09 PM EST us Ashley Mejias MD LAB BLOOD ORDERABLES Final Result [facility] [address] [place] [phone] * Hm Colonoscopy (12/09/2016) Historical Provider HEALTH MAINTENANCE Final Result from Last 3 Months or Most Recently Relevant to Health Maintenance Insurance MEDICARE ADVANTAGE HMO Care Teams Client Services Director Relationship Specialty Start Date End Date Ashley Medeiros MD [address] [place] [address] PCP - General Family Medicine 11/02/18
--- OUTSIDE RECORDS SUMMARY | 2024-08-04 11:10 | XMS_ITS | Continuity of Care Document ---
Author Organization [facility] Address [address] [address] Phone Care Team Providers Care Quality Systems Manager Name Role Phone [place] GUEVARA, Norma Unavailable Unavailable Allergies, Adverse Reactions, Alerts Substance Reaction Status Criticality No Known Allergies Active No Inform ation Medications Medication Instructions Dosage Effective Dates (start - stop) Status Comments latanoprost 0.005 % eye drops instill 1 drop by ophthalmic route [facility] OD - Active 90 day supply. generic okay PRED FORTE 1% SUSP INSTILL 1 DROP IN EACH EYE EVERY MORNING NEEDED - Active fluorometholone 0.1 % eye drops,suspension INSTILL 1 DROP IN RIGHT EYE EVERY NIGHT AT BEDTIME - Active *fill Generic* FML Forte 0.25 % eye drops,suspension instill 1 drop by ophthalmic route HS OD - Active metformin 850 mg tablet [...] End Fac Fee Iridotomy By Stab Incision Oct- Facility Fee Remov Corneal Epithel; W/wo Ch Oct Process Preserv Transp Corneal 16 Ophth Serv: Med Exam; Interm E 16 Est Pt Exp Prob Focused Ophth Serv: Med Exam; Interm E 16 Pachymetry No Charge Retinal OCT Corneal Topography Est Pt Complete Fundus Photography New Pt Complete Advance Directives Directive Yes / No Effective Date File Name No Information Encounters Encounter Description Practice Location Reason(s) For Visit Diagnoses Date Provider Providers Copied on Encounter [facility], [address] [place] [address], [id number], tel:[phone] [facility] [address] No Information 3 Asota Norma. [address] [place], [place], [id number], [place]. tel:[phone] [facility], [address] [place], [place], [id number], tel:[phone] [facility] [place] [address] Glaucoma, pressure check (chief complaint) Open angle with borderline findings, low risk, right eye Oct- 2 Ivonne Pereira. [address] [place], [place], [id number], [place]. tel:[phone] Referring Provider: Randall Coronado, [address] [place], [address] . tel:[phone] Est Patient E/M Moderate MDM [facility], [address] [place], [place], [id number], [place] tel:[phone] [facility] [address] Diabetic eye exam (chief complaint) Glaucoma (chief complaint) DMEK (chief complaint) Corneal transplant statusOpen angle with borderline findings, low risk, right eyePuckering of macula, right eyeDry eye syndrome of bilateral lacrimal glandsType 2 diabetes mellitus without complications custodial (current) use of oral antidiabetic drugs 2 Ivonne Pereira. [address] [place], [place], [id number], [place]. tel:[phone] Referring Provider: Randall Coronado, [address] [place], [address] . tel:[phone] [facility], [address] [place], [place], [id number], [place] tel:[phone] [facility] [address] Glaucoma (chief complaint) Diabetic eye exam (chief complaint) Open angle with borderline findings, low risk, right eyePuckering of macula, right eye 1 Ivonne Pereira. [address] [place], [place], [id number], [place]. tel:[phone] Referring Provider: Randall Coronado, [address] [place], [address] . tel:[phone] [facility], [address] [place], [place], [id number], [place] tel:[phone] [facility] [address] No Information 1 Ivonne Randall. [address] [place], [place], [id number], [place]. tel:[phone] Est Patient E/M Moderate MDM [facility], [address] [place], [place], [id number], [place] tel:[phone] [facility] [address] Diabetic eye exam (chief complaint) Glaucoma (chief complaint) Open angle with borderline findings, low risk, right eyePuckering of macula, right eyeType 2 diabetes mellitus without complications intermediate designer (current) use of oral antidiabetic drugsCorneal transplant statusDry eye syndrome of bilateral lacrimal glands 1 Ivonne Pereira. [address] [place], [place], [id number], [place]. tel:[phone] Referring Provider: Randall Coronado, [address] [place], [address] . tel:[phone] [facility], [address] [place], [place], [address], [place] tel:[phone] [place] [phone] Open angle with borderline findings, low risk, right eye Dec- 0 0 Ivonne Pereira. [address] [place], [place], [address], [place]. tel:[phone] Referring Provider: Randall Coronado, [address] [place], [address] . tel:[phone] [facility], [address] [place], [place], [address], [place] tel:[phone] [facility] [address] Type 2 diabetes mellitus without complications intermediate designer (current) use of oral hypoglycemic drugsCorneal transplant statusPuckeri ng of macula, right eyeOpen angle with borderline findings, low risk, right eye Nov-0 0 Ivonne Pereira. [address], [id number], [place]. tel:[phone] Referring Provider: Randall Coronado, [address] [place], [address] . tel:[phone] [facility], [address] [place], [place], [id number], [place] tel:[phone] [place] [id number] No Information 0 Ivonne Pereira. [address], [place], [place], [id number], [place]. tel:[phone] [facility], [address] [place], [place], [id number], [place] tel:[phone] [facility] [place] [address] Type 2 diabetes mellitus without complications custodial (current) use of oral hypoglycemic drugsOther vitreous opacities, bilateralCorn eal transplant statusPuckeri ng of macula, right eye Sep- [facility]. [address] [place], [place], [id number], [place]. tel:[phone] Referring Provider: Elliot Contreras III, [address], [place], [address]. tel:[phone] [facility], [address] [place], [place], [id number], tel:[phone] [facility] No Information 9 Addy Larkin. [address] [place], [place], [address], [place]. tel:[phone] [facility], [address] [place], [place], [address], [place] tel:[phone] [facility] [place] [address] Type 2 diabetes mellitus without complications intermediate designer (current) use of oral hypoglycemic drugsOther secondary cataract, left eyeOther vitreous opacities, bilateralCorn eal transplant status 0 [facility]. [address] [place], [place], [id number], [place]. tel:[phone] Referring Provider: Elliot Contreras III, [address], [place], [address]. tel:[phone] [facility], [address] [place], [place], [id number], tel:[phone] [facility] [place] Type 2 diabetes mellitus without complications custodial (current) use of oral antidiabetic drugsCombined forms of age-related cataract, left eyeOther secondary cataract, left eyeCorneal transplant status Prasad-2 4-201 7 Ricarda Salvador. [address] [place], [place], [address], [place]. tel:[phone] Referring Provider: Elliot Contreras III, [address] [place], [place], [address]. tel:[phone] [facility], [address] [place], [place], [address], tel:[phone] [facility] [place] Corneal transplant status Gregoryzerbethany Madeleine. [address] [place], [place], [address], [place]. tel:[phone] Referring Provider: Madeleine Chowdary, [address] [place], [address] . tel:[phone] [facility], [address] [place], [place], [address], tel:[phone] [facility] [place] [address] No Information 6 Maxwell Zeelane. [address] [place], [place], [id number], [place]. tel:[phone] Referring Provider: Crow Maxwell, [address] [place], [address] . tel:[phone] [facility], [address] [place], [place], [address], tel:[phone] [facility] [place] [address] Inj conjunctiva and corneal abrasion w/o fb, right eye, init 6 Maxwell Zeelane. [address] [place], [place], [address], [place]. tel:[phone] [facility], [address] [place], [place], [address], tel:[phone] [facility] [place] Good OD (chief complaint) No Information 6 K[place] Madeleine. [address] [place], [place], [address], [place]. tel:[phone] [facility], [address] [place], [place], [address], [place] tel:[phone] [facility] [place] [address] Corneal transplant status Oct-2 0-201 6 No Information [facility], [address], [place], [address], [place] tel:[phone] [facility] [place] [address] blurry vision, slight pain last night, watery eyes OD (chief complaint) No Information Oct-1 2-201 6 Narvon Randall. [address] [place], [place], [address], [place]. tel:[phone] [facility], [address] [place], [place], [address], [place] tel:[phone] [facility] No Information Oct-1 1- 6 No Information Referring Provider: Madeleine Chowdary, [address] [place], [address] . tel:[phone] [facility], [address] [place], [place], [address], [place] tel:[phone] [facility] [place] No Information Oct-1 1- 6 Stradling Kieran. [address] [place], [place], [address], [place]. tel:[phone] [facility], [address] [place], [place], [address], [place] tel:[phone] [facility] [place] No Information Oct-1 1- 6 [facility] [place]. [address] [place], [place], [address], [place]. tel:[phone] [facility], [address] [place], [place], [address], [place] tel:[phone] [facility] [place] [address] Secondary corneal edema, right eye Oct-0 5-201 6 No Information Est Pt Exp Prob Focused [facility], [address] [place], [place], [address], [place] tel:[phone] [facility] [place] [address] Encounter for other preprocedural examination Sep-1 3 6 Dagoberto Sanches. [address] [place], [place], [address], [place]. tel:[phone] [facility], [address] [place], [place], [address], [place] tel:[phone] [facility] [place] [address] Presence of intraocular lensType 2 diabetes mellitus without complications Secondary corneal edema, right eye Sep-0 6 No Information [facility], [address] [place], [place], [address], [place] tel:[phone] [facility] [place] [address] Secondary corneal edema, right eyeType 2 diabetes mellitus without complications Presence of intraocular lens Aug-0 6 No Information Referring Provider: Madeleine Chowdary, [address] [place], [address] . tel:[phone] [facility], [address] [place], [place], [address], [place] tel:[phone] [facility] [place] Secondary corneal edema of right eyeType 2 diabetes mellitus without complications Prasad-2 6 Ricarda Salvador. [address] [place], [place], [address], [place]. tel:[phone] Referring Provider: Elliot Contreras III, [address], [place], [address]. tel:[phone] [facility], [address] [place] [address], [id number], [place] tel:[phone] [facility] Corneal Disorder NosNonexudat Macular DegenChoriore tinal Scar NosDiabetes Mellitus Type 2, Uncomplicated Nov-0 4 No Information [facility], [facility] [place], [id number], [place] tel:[phone] Conversion Location RCA Diabetes Mellitus Type 2, Uncomplicated Chorioretinal Scar NosNonexudat Macular DegenLens Replacement NecOcular Hypertension Sep-0 4-201 4 No Information [facility], [facility] [place], [place], [place], [id number], [place] tel:[phone] Conversion Location RCA Diabetes Mellitus Type 2, Uncomplicated Chorioretinal Scar NosNonexudat Macular DegenSenile Nuclear Cataract No Information Family History Family Member Type Diagnosis Age At Onset Siblings Problem (finding) Diabetes mellitus Mother Problem (finding) Cancer Problem (finding) Family history of Diabe latrell mellitus Payers Payer name Insurance type Covered republican ID Authorhectora naya(s) Prime Medicare Advantage CI [id number] Social History Type Description Quantity Date Captured Comments Sex Male Smoking Status No Information Chief Complaint And Reason For Visit No Information Reason For Referral Reason For Referral No Information Plan Of Treatment Date Type Action Status Future Order: Radiology Order OC T Retina (52037), Ordered on: Ordered Future Order: Radiology Order OC T Optic Nerve (RNFL) ([id number]), Ordered on: Ordered Future Order: Radiology Order OC T Retina ([id number]), Ordered on: Ordered Future Order: Radiology Order OC T Retina ([id number]), Ordered on: Ordered History Of Present Illness [...] Puckering of macula, right eye Impression/Plan - No Non-Proliferative Diabetic Retinopathy, no Diabetic Macular Edema and no Neovascularization of the iris, disc, or elsewhere. Discussed ocular and systemic benefits of blood sugar control. Send notes to PCP. Check annually. Stable Related to Type 2 diabetes mellitus without complications Impression/Plan - Co ntinue FML QHS OD. Patient atanoprost due to elevated IOP 02/11/2020 Related to Corneal transplant status Impression/Plan - Co ntinue artificial tears TID [...] - See primary DM plan Related to custodial (current) use of oral antidiabetic drugs Impression/Plan - OC T mac stable. Monitor Related to Puckering of macula, right eye Impression/Plan - Vi sual Field and OCT RNFL wnl OU. IOP stable; Avg Pachs. Possible low steroid responder. Continue Latanoprost QHS OD only. Related to Open angle with borderline findings, low risk, right eye Impression/Plan - See primary pl an Related to intermediate designer (current) use of oral antidiabetic drugs Impression/Plan - OC T MAC stable, continue to monitor. Related to Puckering of macula, right eye Impression/Plan - OC T RNFL and Visual Field wnl OU. IOP stable. possible low steroid responder. Continue Latanoprost QHS OD only. Related to Open angle with borderline findings, low risk, right eye Impression/Plan - No Background Diabetic Retinopathy, no Diabetic Macular Edema and no Neovascularization of the iris, disc, or elsewhere. Disc. ocular and systemic benefits of blood sugar control. The [place] [employer] recommends target glycohemoglobin at 7.0% or less to minimize incidence of retinopathy as well as other systemic complications of diabetes mellitus. Send notes to PCP. Check annually. Related to Type 2 diabetes mellitus without complications Follow up - Return i n 6 months for Visual Field (24-2), Complete Exam, OCT(RNFL), Impression/Plan - DM EK OD, Continue FML QHS OD. On latanoprost due to elevated IOP 02/11/2020 Related to Corneal transplant status Impression/Plan - In crease artificial tears TID or more OU. Related to Dry eye syndrome of bilateral lacrimal glands - Good iop continue latanto qam OD [...] (current) use of oral hypoglycemic drugs - Asymptomatic. Monitor Related to Puckering of macula, right eye - possible low stero id responder start latanto qhs od Related to Open angle with borderline findings, low risk, right eye - IOP elevated OD, s tart latanoprost QHS OD. Continue FML QHS OD. Related to Corneal transplant status - trace not vision related Relat ed to Puckering of macula, right eye - No Background Diab etic Retinopathy, no Diabetic Macular Edema and no Neovascularization of the iris, disc, or elsewhere. Disc. ocular and systemic benefits of blood sugar control. The [place] [employer] recommends target glycohemoglobin at 7.0% [...] Related to Corne al transplant status - No Background Diab etic Retinopathy, no Diabetic Macular Edema and no Neovascularization of the iris, disc, or elsewhere. Disc. ocular and systemic benefits of blood sugar control. The [place] [employer] recommends target glycohemoglobin at 7.0% [...] Related to Corne al transplant status - See other Diabetic plan Relate d to custodial (current) use of oral antidiabetic drugs - [...] secondary cataract, left eye - Patient doing well. FML QHS OU . Related to Corneal transplant status - Patient doing well . FML QHS [...] eye with PI. Would have patient start [id number] drops and ointment to see if this [...] to Secondary corneal edema, right eye - No Non-Proliferati ve Diabetic Retinopathy, no Diabetic Macular Edema and no Neovascularization of the iris, disc, or elsewhere. Discussed ocular and systemic benefits of blood sugar control. Send notes to PCP. Check annually. Related to Type 2 diabetes mellitus without complications - In good position. CTM. Related to Presence of intraocular lens - EBMD, Pseudophakic OU, reports needing cortex [...] to Secondary corneal edema of right eye - No Non-Proliferati ve Diabetic Retinopathy, no Diabetic Macular Edema and no Neovascularization of the iris, disc, or elsewhere. Discussed ocular and systemic benefits of blood sugar control. Send notes to PCP. Check annually. Related to Type 2 diabetes mellitus without complications Nonexudative Macular Degeneratio n OU Related to [...] OU Related to Posterior Chamber Intraocular Lens Diabetes Mellitus Ty pe 2, Uncomplicated OU [...] CNV. Now Dry. Related to Chorioretinal Scar Chorioretinal Scar O S - Nasaal to [...]
--- OUTSIDE RECORDS SUMMARY | 2024-08-04 11:10 | XMS_ITS | Encounter Summary ---
Author Organization [employer] Address [address] [facility] [address] [place] [address] Care Team Providers Care Twisting Operator Name Role Phone Ashley Medeiros MD Primary Care Provide r Encounter Details Date Type Department Care Team (Late st Contact Info) Description 12/17/2022 Orders Only [facility] [address] [place] [address] ProviderNiharika MD Social History Tobacco Use Types [...] Load <15 NOT DETECTED NOT DETECTED IU/mL [facility] HCV Log PCR <1.18 NOT DETECTED NOT DETECTED Log IU/mL [facility] Comment:This test was perfor med using Real-Time Polymerase ChainReaction.Reportable Range: 15 IU/mL to 100,000,000 IU/mL(1.18 Log IU/mL to 8.00 Log IU/mL).The analytical performance characteristics of thisassay have been determined by [employer].The modifications have not been cleared or approved bythe FDA. This assay has been validated pursuant to theCLIA regulations and is used for clinical purposes.For more information on this test, go to:http://education.Edufii.Qulsar/faq/BEO14v3(This link is being provided for informational/educational purposes only.)THIS TEST WAS PERFORMED AT:[facility] [place] [id number] DOUGLAS MD 05/13/2023 2:09 PM EST 05/14/2023 7:53 AM EST Ashley Mejias MD LAB BLOOD ORDERABLES Final Result [facility] [address] [place] [address] [phone] * Hm Colonoscopy (12/09/2016) us Historical Provider HEALTH MAINTENANCE Final Result documented in this encounter Visit Diagnoses Not on filedocumented in this encounter Care Teams Twisting Operator Relationship Specialty Start Date End Date Ashley Medeiros MD [address] [place] [address] PCP - General Family Medicine 11/02/18 documented as of this encounter
== END 2024-08-03 10:09 | disposition home or self-care (01) ==
LOC: HO.HOSX 10:08
PROVIDERS: Visit Provider Physician Assistant
DX: Z13.89 Encounter for screening for other disorder (principal)

== ENCOUNTER 2024-08-10 11:09 | Outpatient (REF) | payer MEDICARE, SELFPAY ==
--- OUTSIDE RECORDS SUMMARY | 2024-08-11 12:36 | XMS_ITS | Clinical Summary ---
Author Organization [employer] Address [address] [facility] [address] [place] [address] Care Team Providers Care Car Repairer Helper Name Role Phone Ashley Medeiros MD Primary [...] 26 Active Diclofenac Sodium 1 % gelIndications:Ac shelbi pain of left knee Apply as needed [...] Type Department Care Team Description 07/23/2024 Telephone [facility] [address] [place] [address] Robert Parker MD 07/21/[address] [address] Ashley Medeiros MD Referral 06/23/[address] [address] Ashley Medeiros MD x-ray results 06/18/2024 10:00 AM EDT Office Visit [address] [address] Ashley Medeiros MD Essential hypertension (Primary Dx); Acute pain of left knee; Left hip pain; Smoker 06/18/2024 Travel 05/21/2024 1:45 PM EST Office Visit [address] [address] Madai Read ANP Acute pain of left knee (Primary Dx); Essential hypertension; Smoker 05/21/2024 Travel 05/20/[address] [address] Ashley Medeiros MD Nurse Triage from Last [...] AM EDT Acute pain of left knee LIPID PANEL, STANDARD Routine 05/13/2023 2:09 PM EST Essential hypertension HM COLONOSCOPY Routine 12/09/2016 from Last 3 Months or Most Recently Relevant to Health Maintenance Results * XR Knee 4+ Views Left (06/18/2024 11:38 AM EDT) Anatomical Region Laterality Modality Lower Extremities, Knee Left Radiogra phic Imaging 06/18/2024 11:3 8 AM EDT Narrative 06/18/2024 12:19 PM EDT ?[facility] ?[address] ?[place] [address] ?XRay Report ? Signed ? Patient: Pierre,Jeyson ?MR#: [id number] ? : 1950 ?Acct:[id number] ? Age/Sex: 73 / M ?ADM Date: 06/18/ ? Loc: HO.HHCX ? Attending Dr: Ashley Mejias MD ? Ordering Physician: Ashley Medeiros MD ?? Date of Service: 06/18/24 ?? Procedure(s): XR knee LT 4V ?? Accession Number(s): [id number] ? cc: Ashley Medeiros MD ? EXAMINATION: [...] DD/ 1138 ? TD/TT: 06/18/24 1200 ? Director Of Student Life: ? Procedure Note Donpreciousabdimack, Image - 06/18/[address] [address] XRay Report Signed Patient: Marlene Jay#: [id number] : 2Acct:[id number] Age/Sex: 73 / MADM Date: 06/18/24 Loc: HO.HHCX Attending Dr: Ashley Mejias MD Ordering Physician: Ashley Medeiros MD Date of Service: 06/18/24 Procedure(s): XR knee LT 4V Accession Number(s): [id number] cc: Ashley Medeiros MD EXAMINATION: XR KNEE [...] 06/18/24 1216 DD/ 1138 TD/TT: 06/18/24 1200 Director Of Student Life: us Ashley Mejias MD IMG XR PROCEDURES Fin al Result * (ABNORMAL) Lipid Panel, Standard (05/13/2023 2:09 PM EST) Triglycerides 66 <150 mg/dL [facility] Comment:Desirable Triglyceri de: less than 150 mg/dLBorderline High Triglyceride 150-199 mg/dLHigh Triglyceride: 200-499 mg/dLVery High Triglyceride: greater than or equal to 5OO mg/dL Cholesterol 200(H) <200 mg/dL [facility] Comment:Desirable Cholestero l: less than 200 mg/dLBorderline High Cholesterol: 200-239 mg/dLHigh Cholesterol: greater than 239 mg/dL LDL Cholesterol Calculated 129(H) <100 mg/dL [facility] Comment:Desirable LDL: less than 100 mg/dLNear Optimal/Above Optimal LDL: 110- 129 mg/dLBorderline High LDL: 130-159 mg/dLHigh LDL: 160-189 mg/dLVery High LDL: greater than or equal to 190 mg/dL HDL Cholesterol 58 >40 mg/dL [facility] Comment:Desirable HDL: great er than 40 mg/dL Note: This HDL assay may give artificially low results in patients with liver disease. Blood Venous blood specimen / Unknown 05/13/2023 2:09 PM EST 05/13/2023 4:09 PM EST us Ashley Mejias MD LAB BLOOD ORDERABLES Final Result [facility] [address] [place] [address] [phone] * Colonoscopy (12/09/2016) us Historical Provider HEALTH MAINTENANCE Final Result from Last 3 Months or Most Recently Relevant to Health Maintenance Insurance [employer] MED[employer]AGE HMO Care Teams Car Repairer Helper Relationship Specialty Start Date End Date Ashley Medeiros MD [address] [place] [phone] PCP - General Family Medicine 11/02/18
--- OUTSIDE RECORDS SUMMARY | 2024-08-11 12:36 | XMS_ITS | Encounter Summary ---
Author Organization [employer] Address [address] [facility] 7[address] [place] [address] Care Team Providers Care Chairman Name Role Phone Ashley Medeiros MD Primary Care Provide r Encounter Details Date Type Department Care Team (Late st Contact Info) Description 12/17/2022 Orders Only [facility] [address] [place] [address] ProviderNiharika MD Social History Tobacco Use Types [...] Load <15 NOT DETECTED NOT DETECTED IU/mL [facility] HCV Log PCR <1.18 NOT DETECTED NOT DETECTED Log IU/mL [facility] Comment:This test was perfor med using Real-Time Polymerase ChainReaction.Reportable Range: 15 IU/mL to 100,000,000 IU/mL(1.18 Log IU/mL to 8.00 Log IU/mL).The analytical performance characteristics of thisassay have been determined by [facility].The modifications have not been cleared or approved bythe FDA. This assay has been validated pursuant to theCLIA regulations and is used for clinical purposes.For more information on this test, go to:http://education.MyChurch.Onovative/faq/WIZ48c4(This link is being provided for informational/educational purposes only.)THIS TEST WAS PERFORMED AT:[facility] [place] [id number] DOUGLAS MD 05/13/2023 2:09 PM EST 05/14/2023 7:53 AM EST us Ashley Mejias MD LAB BLOOD ORDERABLES Final Result [facility] [address] [place] [phone] * Hm Colonoscopy (12/09/2016) us Historical Provider HEALTH MAINTENANCE Final Result documented in this encounter Visit Diagnoses Not on filedocumented in this encounter Care Teams Chairman Relationship Specialty Start Date End Date Ashley Medeiros MD [address] [place] [id number] PCP - General Family Medicine 11/02/18 documented as of this encounter
--- OUTSIDE RECORDS SUMMARY | 2024-08-11 12:36 | XMS_ITS | Continuity of Care Document ---
Author Organization [facility] Address [address] [address] Phone Care Team Providers Care Oil Dispatcher Name Role Phone [place] GUEVARA, Norma Unavailable Unavailable Allergies, Adverse Reactions, Alerts Substance Reaction Status Criticality No Known Allergies Active No Inform ation Medications Medication Instructions Dosage Effective Dates (start - stop) Status Comments latanoprost 0.005 % eye drops instill 1 drop by ophthalmic route [facility] OD - Active 90 day supply. generic [...] Global 6 Keratoplasty (Corneal Transplant) Endoth elial Iridotomy (dec Pro); Ex Transf Oct 16 Remov Corneal Epithel; W/wo Ch Oct 16 Facility Fee Keratoplasty (Corneal Trans plant) End Fac Fee Iridotomy By Stab Incision Oct- Facility Fee Remov Corneal Epithel; W/wo Process Preserv Transp Corneal Oct 16 Anes- Eye; Corneal Transpl Ophth Serv: Med Exam; Interm E 16 Est Pt Exp Prob Focused Ophth Serv: Med Exam; Interm E 16 Pachymetry No Charge Retinal OCT Corneal Topography Est Pt Complete Fundus Photography New Pt Complete Advance Directives Directive Yes / No Effective Date File Name No Information Encounters Encounter Description Practice Location Reason(s) For Visit Diagnoses Date Provider Providers Copied on [facility]counter [facility], [address] [place] [address], [id number], tel:[phone] [facility] [place] [address] No Information 3 Asota Norma. [address] [place], [place], [id number], [place]. tel:[phone] [facility], [address] [place], [place], [id number], tel:[phone] [employer] [place] [address] Glaucoma, pressure check (chief complaint) Open angle with borderline findings, low risk, right eye Oct- 2 Ivonne Pereira. [address] [place], [place], [id number], [place]. tel:[phone] Referring Provider: Randall Coronado, [address] [place], [address] . tel:[phone] Est Patient E/M Moderate MDM [facility], [address] [place], [place], [id number], [place] tel:[phone] [facility] [address] Diabetic eye exam (chief complaint) Glaucoma (chief complaint) DMEK (chief complaint) Corneal transplant statusOpen angle with borderline findings, low risk, right eyePuckering of macula, right eyeDry eye syndrome of bilateral lacrimal glandsType 2 diabetes mellitus without complications parts counterman (current) use of oral antidiabetic drugs 2 Ivonne Pereira. [address] [place], [place], [id number], [place]. tel:[phone] Referring Provider: Randall Coronado, [address] [place], [address] . tel:[phone] [facility], [address] [place], [place], [id number], [place] tel:[phone] [facility] [place] [address] Glaucoma (chief complaint) Diabetic eye exam (chief complaint) Open angle with borderline findings, low risk, right eyePuckering of macula, right eye 1 Ivonne Pereira. [address] [place], [place], [id number], [place]. tel:[phone] Referring Provider: Randall Coronado, [address] [place], [address] . tel:[phone] [facility], [address] [place], [place], [id number], [place] tel:[phone] [facility] [address] No Information 1 Ivonne Randall. [address] [place], [place], [id number], [place]. tel:[phone] Est Patient E/M Moderate MDM [facility], [address] [place], [place], [id number], [place] tel:[phone] [facility] [address] Diabetic eye exam (chief complaint) Glaucoma (chief complaint) Open angle with borderline findings, low risk, right eyePuckering of macula, right eyeType 2 diabetes mellitus without complications parts counterman (current) use of oral antidiabetic drugsCorneal transplant statusDry eye syndrome of bilateral lacrimal glands 1 Ivonne Pereira. [address] [place], [place], [id number], [place]. tel:[phone] Referring Provider: Randall Coronado, [address] [place], [address] . tel:[phone] [facility], [address] [place], [place], [id number], [place] tel:[phone] [place] [phone] Open angle with borderline findings, low risk, right eye Dec- 0 0 Ivonne Pereira. [address] [place], [place], [id number], [place]. tel:[phone] Referring Provider: Randall Coronado, [address] [place], [address] . tel:[phone] [facility], [address] [place], [place], [id number], [place] tel:[phone] [facility] [address] Type 2 diabetes mellitus without complications [facility] (current) use of oral hypoglycemic drugsCorneal transplant statusPuckeri ng of macula, right eyeOpen angle with borderline findings, low risk, right eye Nov-0 0 Ivonne Pereira. [address], [id number], [place]. tel:[phone] Referring Provider: Randall Coronado, [address] [place], [address] . tel:[phone] [facility], [address] [place], [place], [id number], [place] tel:[phone] [place] [phone] No Information 0 Ivonne Pereira. [address], [place], [place], [id number], [place]. tel:[phone] [facility], [address] [place], [place], [id number], [place] tel:[phone] [facility] [place] [address] Type 2 diabetes mellitus without complications [facility] (current) use of oral hypoglycemic drugsOther vitreous opacities, bilateralCorn eal transplant statusPuckeri ng of macula, right eye Sep- [facility]. [address] [place], [place], [id number], [place]. tel:[phone] Referring Provider: Elliot Contreras III, [address], [place], [address]. tel:[phone] [facility], [address] [place], [place], [id number], tel:[phone] [facility] No Information 9 Addy Larkin. [address] [place], [place], [id number], [place]. tel:[phone] [facility], [address] [place], [place], [id number], [place] tel:[phone] [facility] [place] [address] Type 2 diabetes mellitus without complications [facility] (current) use of oral hypoglycemic drugsOther secondary cataract, left eyeOther vitreous opacities, bilateralCorn eal transplant status 0 [facility]. [address] [place], [place], [id number], [place]. tel:[phone] Referring Provider: Elliot Contreras III, [address], [place], [address]. tel:[phone] [facility], [address] [place], [place], [id number], tel:[phone] [facility] [place] Type 2 diabetes mellitus without complications [facility] (current) use of oral antidiabetic drugsCombined forms of age-related cataract, left eyeOther secondary cataract, left eyeCorneal transplant status Prasad-2 4-201 7 Ricarda Salvador. [address] [place], [place], [id number], [place]. tel:[phone] Referring Provider: Elliot Contreras III, [address] [place], [place], [address]. tel:[phone] [facility], [address] [place], [place], [id number], tel:[phone] [facility] [place] Corneal transplant status Gregoryzerbethany Madeleine. [address] [place], [place], [id number], [place]. tel:[phone] Referring Provider: Madeleine Chowdary, [address] [place], [address] . tel:[phone] [facility], [address] [place], [place], [id number], tel:[phone] [facility] [place] [address] No Information 6 Maxwell Zeelane. [address] [place], [place], [id number], [place]. tel:[phone] Referring Provider: Crow Maxwell, [address] [place], [address] . tel:[phone] [facility], [address] [place], [place], [id number], tel:[phone] [facility] [place] [address] Inj conjunctiva and corneal abrasion w/o fb, right eye, init 6 Maxwell Zeelane. [address] [place], [place], [address], [place]. tel:[phone] [facility], [address] [place], [place], [id number], tel:[phone] [facility] [place] Good OD (chief complaint) No Information 6 [place] Madeleine. [address] [place], [place], [address], [place]. tel:[phone] [facility], [address] [place], [place], [address], [place] tel:[phone] [facility] [place] [address] Corneal transplant status Oct-2 0-201 6 No Information [facility], [address] [place], [place], [id number], [place] tel:[phone] [facility] [place] [address] blurry vision, slight pain last night, watery eyes OD (chief complaint) No Information Oct-1 2-201 6 [place] Randall. [address] [place], [place], [address], [place]. tel:[phone] [facility], [address] [place], [place], [address], [place] tel:[phone] [place] [facility] No Information Oct-1 1- 6 No Information Referring Provider: Madeleine Chowdary, [address] [place], [address] . tel:[phone] [facility], [address] [place], [place], [address], [place] tel:[phone] [facility] [place] No Information Oct-1 1- 6 [facility] [place]. [address] [place], [place], [address], [place]. tel:[phone] [facility], [address] [place], [place], [id number], [place] tel:[phone] [facility] [place] No Information Oct-1 1- 6 Stradling Kieran. [address] [place], [place], [address], [place]. tel:[phone] [facility], [address] [place], [place], [address], [place] tel:[phone] [facility] [place] [address] Secondary corneal edema, right eye Oct-0 5-201 6 No Information Est Pt Exp Prob Focused [facility], [address] [place], [place], [id number], [place] tel:[phone] [facility] [place] [address] Encounter for other preprocedural examination Sep-1 3 6 Dagoberto Sanches. [address] [place], [place], [address], [place]. tel:[phone] [facility], [address] [place], [place], [address], [place] tel:[phone] [facility] [place] [address] Presence of intraocular lensType 2 diabetes mellitus without complications Secondary corneal edema, right eye Sep-0 6 No Information [facility], [address] [place], [place], [address], [place] tel:[phone] [facility] [place] [address] Secondary corneal edema, right eyeType 2 diabetes mellitus without complications Presence of intraocular lens Aug-0 6 No Information Referring Provider: Madeleine Chowdary, [address] [place], [address] . tel:[phone] [facility], [address] [place], [place], [address], [place] tel:[phone] [facility] [place] Secondary corneal edema of right eyeType 2 diabetes mellitus without complications Prasad-2 6 Ricarda Salvador. [address] [place], [place], [address], [place]. tel:[phone] Referring Provider: Elliot Contreras III, [address], [place], [address]. tel:[phone] [facility], [address] [place] [address], [id number], [place] tel:[phone] [place] Corneal Disorder NosNonexudat Macular DegenChoriore tinal Scar NosDiabetes Mellitus Type 2, Uncomplicated Nov-0 4 No Information [facility], [facility] [address] [place], [place], [id number], [place] tel:[phone] Conversion Location RCA Diabetes Mellitus Type 2, Uncomplicated Chorioretinal Scar NosNonexudat Macular DegenLens Replacement NecOcular Hypertension Sep-0 4-201 4 No Information [facility], [facility] [place], [place], [place], [id number], [place] tel:[phone] Conversion Location RCA Diabetes Mellitus Type 2, Uncomplicated Chorioretinal Scar NosNonexudat Macular DegenSenile Nuclear Cataract No Information Family History Family Member Type Diagnosis Age At Onset Problem (finding) Family history of Diabe latrell mellitus Siblings Problem (finding) Diabetes mellitus Mother Problem (finding) Cancer Payers Payer name Insurance type Covered alliance party ID Authoriza tiprice(s) Prime Medicare Advantage CI [id number] Social History Type Description Quantity Date Captured Comments Sex Male Smoking Status No Information Chief Complaint And Reason For Visit No Information Reason For Referral Reason For Referral No Information Plan Of Treatment Date Type Action Status Future Order: Radiology Order OC T Retina (96104), Ordered on: Ordered Future Order: Radiology Order OC T Optic Nerve (RNFL) ([id number]), Ordered on: Ordered Future Order: Radiology Order OC T Retina ([id number]), Ordered on: Ordered Future Order: Radiology Order OC T Retina ([id number]), Ordered on: Ordered History Of Present Illness [...] - See primary DM plan Related to [facility] (current) use of oral antidiabetic drugs Impression/Plan [...] - See primary pl an Related to [facility] (current) use of oral antidiabetic drugs Impression/Plan [...] Field (24-2), Complete Exam, OCT(RNFL), Impression/Plan - No Background Diabetic Retinopathy, no Diabetic Macular Edema and no Neovascularization of the iris, disc, or elsewhere. Disc. ocular and systemic benefits of blood sugar control. The [place] [employer] recommends target glycohemoglobin at 7.0% or less to minimize incidence of retinopathy as well as other systemic complications of diabetes mellitus. Send notes to PCP. Check annually. Related to Type 2 diabetes mellitus without complications Impression/Plan - DM EK OD, Continue FML QHS OD. On latanoprost due to elevated IOP 02/11/2020 Related to Corneal transplant status Impression/Plan - In crease artificial tears TID or more OU. Related to Dry eye syndrome of bilateral lacrimal glands - Good iop continue latanto qam OD only Related to Open angle with borderline findings, low risk, right eye - Asymptomatic. Monitor Related to Puckering of [...] Type 2 diabetes mellitus without complications - IOP elevated OD, s tart latanoprost QHS OD. Continue FML QHS OD. Related to Corneal transplant status - trace not vision related Relat ed to Puckering of macula, right eye - No Background Diab etic Retinopathy, no Diabetic Macular Edema and no Neovascularization of the iris, disc, or elsewhere. Disc. ocular and systemic benefits of blood sugar control. The [place] [employer] recommends target glycohemoglobin at 7.0% [...] systemic benefits of blood sugar control. The [place] [employer] recommends target glycohemoglobin at 7.0% [...] . Related to Corneal transplant status - Opacified capsule not affecting vision. No indication for treatment. Return if decreased vision. Related to Other secondary cataract, left eye - See other Diabetic plan Relate d to parts counterman (current) use of oral antidiabetic drugs - No Non-Proliferati ve Diabetic Retinopathy, no Diabetic Macular Edema and no Neovascularization of the iris, disc, or elsewhere. Discussed ocular and systemic benefits of blood sugar control. Check annually. Related to Type 2 diabetes mellitus without complications - Patient doing well . FML QHS [...] Type 2 diabetes mellitus without complications - I would recommend DMEK surgery or [...] to Secondary corneal edema, right eye - Edema, inferior bu llae. Discussed doing DMEK Right eye with PI. Would have patient start [id number] drops and ointment to see if this [...] QID OD, ATs q1-2h.Will schedule cornea consultation; [facility] pt to rtc immediately if any changes in vision or worsening of symptoms. Related to Secondary corneal edema of right eye Nonexudative Macular Degeneratio n OU Related to Nonexudative Macular Degeneration Corneal Edema OD - P atient is [...] OCT OU Related to Corneal Disorder Nos Diabetes Mellitus Ty pe 2, Uncomplicated OU Related to Diabetes Mellitus Type 2, Uncomplicated Chorioretinal Scar OS Related to Chorioretinal Scar [...] Related to Diabetes Mellitus Type 2, Uncomplicated Ocular Hypertension OD - Presscribed combigan bid OD. Instructed to follow-up in 1-[address] De Leon for further management. Related to Ocular Hypertension Nonexudative Macular Degeneration OS - No IRF/SRF. Observe for now. Related to Nonexudative Macular Degeneration Chorioretinal Scar O S - Nasaal to [...]
== END 2024-08-10 11:10 | disposition home or self-care (01) ==
LOC: HO.HOSX 11:09
PROVIDERS: Visit Provider Physician Assistant
DX: Z13.89 Encounter for screening for other disorder (principal)